=== PATIENT | female | born 1950 | race Caucasian/White ===

== ENCOUNTER → 2018-01-21 10:07 | Outpatient (CLI) | payer MEDICARE, OTHER, SELFPAY ==
[2018-01-21 13:43] LABS: Anion Gap 11.6 mEq/L (5-15); Blood Urea Nitrogen 30 mg/dL (7-18); Carbon Dioxide 35 mmol/L (21.0-32.0); Chloride 100 mmol/L (98-107); Creatinine,Serum 1.35 mg/dL (0.55-1.02); Estimated Glomerular Filt Rate 39 ml/min (>60); GFR (African American) 47 ML/MIN (>60); Glucose 130 mg/dL (74-106); Magnesium 1.9 mg/dL (1.4-2.2); Potassium 3.6 mmoL/L (3.5-5.1); Sodium 143 mmol/L (136-145)
== END ==
PROVIDERS: PCP Internal Medicine Adolescent Medicine; Visit Provider Internal Medicine Adolescent Medicine
DX: I87.2 Venous insufficiency (chronic) (peripheral) (principal)
CPT/HCPCS: 36415; 80048; 83735

== ENCOUNTER → 2018-02-18 16:33 | Outpatient (REF) | payer MEDICARE, SELFPAY | LOC: LAB 16:33 | PROVIDERS: Visit Provider Urology | DX: R39.89 Other symptoms and signs involving the genitourinary system (principal) | CPT/HCPCS: 87086; 87088; 87186 ==

== ENCOUNTER → 2018-04-17 10:28 | Outpatient (CLI) | payer MEDICARE, SELFPAY ==
[2018-04-17 13:27] LABS: Basophils % 0.4 % (0.1-2.0); Eosinophils # 0.1 K/mm3 (0.0-0.4); Eosinophils % 1.8 % (0.1-12.0); Hematocrit 40.2 % (37.0-47.0); Hemoglobin 12.6 g/dL (12.2-16.2); Lymphocytes # 1.3 K/mm3 (0.7-4.5); Lymphocytes % 20.3 K/mm3 (10-50); Mean Corpuscular HGB Conc 31.2 g/dL (31.8-35.4); Mean Corpuscular Hemoglobin 27.8 pg (27.0-31.2); Mean Platelet Volume 7.5 fl (7.4-10.4); Monocytes # 0.3 K/mm3 (0.1-1.0); Monocytes % 4.9 % (1.7-9.3); Neutrophils # 4.7 K/mm3 (1.8-7.8); Neutrophils % 72.6 % (37.0-80.0); Platelet Count 235 K/mm3 (142-424); Red Blood Count 4.52 M/mm3 (4.20-5.40); Red Cell Distribution Width 15.7 % (11.5-17.5); White Blood Count 6.5 K/mm3 (4.8-10.8)
[2018-04-17 13:40] LABS: Anion Gap 12.4 mEq/L (5-15); Blood Urea Nitrogen 31 mg/dL (7-18); Calcium 9.2 mg/dL (8.5-10.1); Carbon Dioxide 34 mmol/L (21.0-32.0); Chloride 101 mmol/L (98-107); Creatinine,Serum 1.32 mg/dL (0.55-1.02); Estimated Glomerular Filt Rate 40 ml/min (>60); GFR (African American) 49 ML/MIN (>60); Glucose 128 mg/dL (74-106); Magnesium 1.9 mg/dL (1.4-2.2); Potassium 3.4 mmoL/L (3.5-5.1); Sodium 144 mmol/L (136-145)
== END ==
PROVIDERS: Visit Provider Internal Medicine Adolescent Medicine
DX: I89.0 Lymphedema, not elsewhere classified (principal); I10 Essential (primary) hypertension
CPT/HCPCS: 36415; 80048; 83735; 85025

== ENCOUNTER → 2018-08-11 12:28 | Outpatient (CLI) | payer MEDICARE, OTHER, SELFPAY ==
--- NOTE | 2018-08-11 12:30 | CT_ITS ---
CT abdomen pelvis wo con CLINICAL INDICATION: ITS.REASON: UROLITHIASIS ORDERING PHYSICIAN: Cody Patel MD PATIENT AGE: 68 years COMPARISON: 07/09/2017 TECHNIQUE: Axial images obtained with sagittal and coronal reformats. All CT scans at the facility use one or more dose reduction, viz: automated exposure control, ma/kV adjustment per patient size (including targeted exams where dose is matched to indication, i.e. head), or iterative reconstruction technique. PROCEDURE: Oral Contrast: None IV Contrast: None . FINDINGS: The liver, spleen, adrenal glands, and pancreas have an unremarkable unenhanced CT appearance. There is a gastric lap band present. There are bilateral renal calculi. On the right there are at least 3 stones the largest in the lower pole at 9 x 3 mm. On the left there are at least 3 stones one in the midpole at 4 mm and 2 in the lower pole and 3 mm each. No ureteral calculi. No hydronephrosis. Pelvic images are limited secondary to artifact from bilateral hip replacements and patient's body habitus. No acute finding is evident. Multilevel degenerative disc disease is present in the lumbar spine. There are bilateral hip prosthesis. IMPRESSION: Bilateral nonobstructing renal calculi overall not significantly changed
== END ==
PROVIDERS: Family Provider Internal Medicine Adolescent Medicine; PCP Internal Medicine Adolescent Medicine; Visit Provider Urology
DX: N20.9 Urinary calculus, unspecified (principal)
CPT/HCPCS: 74176

== ENCOUNTER → 2018-11-21 10:13 | Outpatient (CLI) | payer MEDICARE, SELFPAY ==
[2018-11-21 14:00] LABS: Basophils % 0.2 % (0.1-2.0); Eosinophils # 0.1 K/mm3 (0.0-0.4); Hematocrit 38.2 % (37.0-47.0); Hemoglobin 11.6 g/dL (12.2-16.2); Lymphocytes # 0.9 K/mm3 (0.7-4.5); Lymphocytes % 18.9 % (10-50); Mean Corpuscular HGB Conc 30.4 g/dL (31.8-35.4); Mean Platelet Volume 7.5 fl (7.4-10.4); Monocytes # 0.3 K/mm3 (0.1-1.0); Monocytes % 6.6 % (1.7-9.3); Neutrophils # 3.5 K/mm3 (1.8-7.8); Neutrophils % 72.2 % (37.0-80.0); Platelet Count 270 K/mm3 (142-424); White Blood Count 4.8 K/mm3 (4.8-10.8)
[2018-11-21 14:38] LABS: Hemoglobin A1C 5.3 % (0.0-7.0)
[2018-11-21 15:16] LABS: Alanine Aminotransferase 13 U/L (12-78); Albumin Level 3.3 gm/dL (3.4-5.0); Albumin/Globulin Ratio 0.8 (1.1-1.8); Alkaline Phosphatase 111 U/L (46-116); Anion Gap 16.4 mEq/L (5-15); Aspartate Amino Transferase 8 U/L (15-37); Bilirubin,Total 0.5 mg/dL (0.2-1.0); Blood Urea Nitrogen 19 mg/dL (7-18); Calcium 8.7 mg/dL (8.5-10.1); Carbon Dioxide 28 mmol/L (21.0-32.0); Chloride 103 mmol/L (98-107); Cholesterol 215 mg/dL (140-200); Creatinine,Serum 1.18 mg/dL (0.55-1.02); Estimated Glomerular Filt Rate 46 ml/min (>60); GFR (African American) 55 ML/MIN (>60); Globulin 3.9 gm/dl (1.3-3.2); Glucose 107 mg/dL (74-106); HDL Cholesterol 43 mg/dL (29-89); LDL Cholesterol 158 mg/dL (0-130); Potassium 4.4 mmoL/L (3.5-5.1); Sodium 143 mmol/L (136-145); Total Protein,Serum 7.2 gm/dL (6.4-8.2); Triglycerides 68 mg/dL (30-200); VLDL Cholesterol 14 mg/dL (0-40)
== END ==
PROVIDERS: PCP Internal Medicine Adolescent Medicine; Visit Provider Internal Medicine Adolescent Medicine
DX: E11.9 Type 2 diabetes mellitus without complications (principal); I10 Essential (primary) hypertension; E78.5 Hyperlipidemia, unspecified
CPT/HCPCS: 36415; 80053; 80061; 83036; 85025

== ENCOUNTER → 2019-07-24 10:31 | Outpatient (CLI) | payer MEDICARE, OTHER, SELFPAY ==
[2019-07-24 13:34] LABS: Basophils % 0.6 % (0.1-2.0); Eosinophils # 0.1 K/mm3 (0.0-0.4); Eosinophils % 1.8 % (0.1-12.0); Hematocrit 41.6 % (37.0-47.0); Lymphocytes # 1.3 K/mm3 (0.7-4.5); Lymphocytes % 24.9 % (10-50); Mean Corpuscular HGB Conc 31.2 g/dL (31.8-35.4); Mean Corpuscular Hemoglobin 27.8 pg (27.0-31.2); Mean Corpuscular Volume 89.4 fl (81-99); Mean Platelet Volume 8.3 fl (7.4-10.4); Monocytes # 0.3 K/mm3 (0.1-1.0); Monocytes % 5.9 % (1.7-9.3); Neutrophils # 3.3 K/mm3 (1.8-7.8); Neutrophils % 66.8 % (37.0-80.0); Platelet Count 241 K/mm3 (142-424); Red Blood Count 4.65 M/mm3 (4.20-5.40); Red Cell Distribution Width 14.9 % (11.5-17.5)
[2019-07-24 14:24] LABS: Alanine Aminotransferase 14 U/L (12-78); Albumin Level 3.5 gm/dL (3.4-5.0); Alkaline Phosphatase 102 U/L (46-116); Anion Gap 15.2 mEq/L (5-15); Aspartate Amino Transferase 8 U/L (15-37); Bilirubin,Total 0.4 mg/dL (0.2-1.0); Blood Urea Nitrogen 18 mg/dL (7-18); Calcium 8.9 mg/dL (8.5-10.1); Carbon Dioxide 27 mmol/L (21.0-32.0); Chloride 104 mmol/L (98-107); Chol/HDL Ratio 4.6 (1-3.5); Cholesterol 226 mg/dL (140-200); Creatinine,Serum 1.19 mg/dL (0.55-1.02); Estimated Glomerular Filt Rate 45 ml/min (>60); GFR (African American) 55 ML/MIN (>60); Globulin 3.5 gm/dl (1.3-3.2); Glucose 119 mg/dL (74-106); HDL Cholesterol 49 mg/dL (29-89); LDL Cholesterol 160 mg/dL (0-130); Potassium 4.2 mmoL/L (3.5-5.1); Sodium 142 mmol/L (136-145); Triglycerides 87 mg/dL (30-200); VLDL Cholesterol 17 mg/dL (0-40)
[2019-07-24 15:37] LABS: Hemoglobin A1C 5.6 % (0.0-7.0)
== END ==
PROVIDERS: PCP Internal Medicine Adolescent Medicine; Visit Provider Internal Medicine Adolescent Medicine
DX: E11.9 Type 2 diabetes mellitus without complications (principal); Z79.84 Long term (current) use of oral hypoglycemic drugs; I10 Essential (primary) hypertension
CPT/HCPCS: 36415; 80053; 80061; 83036; 85025

== ENCOUNTER → 2019-08-18 10:15 | Outpatient (CLI) | payer MEDICARE, OTHER, SELFPAY ==
--- NOTE | 2019-08-18 10:17 | CT_ITS ---
PROCEDURE: CT ABDOMEN PELVIS WO CON a CLINICAL HISTORY: urolithiasis, bilateral flank pain COMPARISON: ABDPELWO CT abdomen pelvis wo con from 08/11/2018 TECHNIQUE: Axial images obtained with sagittal and coronal reformats. All CT scans at the facility use one or more dose reduction, viz: automated exposure control, ma/kV adjustment per patient size (including targeted exams where dose is matched to indication, i.e. head), or iterative reconstruction technique. FINDINGS: There are atelectatic or fibrotic changes in the lung bases. The liver, gallbladder, spleen, adrenal glands, and pancreas have an unremarkable appearance. There is a gastric lap band present the which appears to be in satisfactory position. There are multiple right renal calculi measuring up to 9 mm in the lower pole on the right and 6 mm in the lower pole on the left. No ureteral calculi. No hydronephrosis. Image quality is somewhat degraded in the lower abdomen and pelvis due to patient's body habitus and artifact from bilateral hip replacements. No obvious mass or abnormal fluid collection is evident. There is a mild amount of retained colonic feces. The distal most aspect of the ureters are not well delineated due to the overlying metallic artifact. There are degenerative changes of the lumbar spine. There is 6 mm anterolisthesis of L4 on L5 with multilevel degenerative disc disease. IMPRESSION: 1. Bilateral nephrolithiasis. No hydronephrosis. Distal ureters are not visualized due to overlying metallic artifact from the bilateral hip prosthesis 2. Constipation. 3. Otherwise negative CT abdomen pelvis without contrast Dictated by: Lenard Bowen MD 08/19/2019 13:47 Electronically signed by Lenard Bowen MD in [facility] 08/19/2019 13:47
== END ==
PROVIDERS: PCP Internal Medicine Adolescent Medicine; Visit Provider Urology
DX: N20.9 Urinary calculus, unspecified (principal)
CPT/HCPCS: 74176

== ENCOUNTER → 2019-08-25 08:45 | Outpatient (CLI) | payer MEDICARE, SELFPAY ==
--- NOTE | 2019-08-25 08:47 | MM_ITS ---
PROCEDURE: MM DIG SCREENING MAMM BI W/CAD CLINICAL INDICATION: SCREENING There is a history of breast cancer in patient's sister diagnosed after menopause. 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 R2 CAD reviewed. FINDINGS: The breasts are composed primarily of fat with moderate scattered fibroglandular densities in each breast. There is a mole marker right breast. There is no suspicious lesion in either breast and no suspicious microcalcifications. IMPRESSION: Fatty type breast parenchyma with no suspicious lesions seen BI-RAD Category: 1 Negative FOLLOW-UP: 1YR 1 Year Follow-up (A letter has been sent to the patient regarding results of the study.) Dictated by: Dr. Baljit Juarez MD 08/26/2019 19:[address] Baljit Juarez MD in [facility] 08/26/2019 19:29
== END ==
PROVIDERS: PCP Internal Medicine Adolescent Medicine; Visit Provider Internal Medicine Adolescent Medicine
DX: Z12.31 Encounter for screening mammogram for malignant neoplasm of breast (principal); Z80.3 Family history of malignant neoplasm of breast
CPT/HCPCS: 77067

== ENCOUNTER → 2020-05-13 10:00 | Outpatient (CLI) | payer MEDICARE, SELFPAY ==
[2020-05-13 13:25] LABS: Basophils % 0.3 % (0.1-2.0); Eosinophils # 0.1 K/mm3 (0.0-0.4); Eosinophils % 2.3 % (0.1-12.0); Hematocrit 40.7 % (37.0-47.0); Hemoglobin 13.1 g/dL (12.2-16.2); Lymphocytes # 1.3 K/mm3 (0.7-4.5); Mean Corpuscular HGB Conc 32.1 g/dL (31.8-35.4); Mean Corpuscular Hemoglobin 28.5 pg (27.0-31.2); Mean Corpuscular Volume 88.9 fl (81-99); Mean Platelet Volume 7.7 fl (7.4-10.4); Monocytes # 0.4 K/mm3 (0.1-1.0); Monocytes % 7.3 % (1.7-9.3); Neutrophils # 3.1 K/mm3 (1.8-7.8); Neutrophils % 64.1 % (37.0-80.0); Platelet Count 226 K/mm3 (142-424); Red Blood Count 4.57 M/mm3 (4.20-5.40); Red Cell Distribution Width 15.1 % (11.5-17.5); White Blood Count 4.9 K/mm3 (4.8-10.8)
[2020-05-13 13:36] LABS: Alanine Aminotransferase 9 U/L (12-78); Albumin/Globulin Ratio 1.3 (1.1-1.8); Alkaline Phosphatase 115 U/L (38-126); Anion Gap 11.3 mEq/L (5-15); Aspartate Amino Transferase 18 U/L (14-36); Bilirubin,Total 0.7 mg/dl (0.2-1.3); Blood Urea Nitrogen 16 mg/dl (7-17); Calcium 9.1 mg/dl (8.4-10.2); Carbon Dioxide 28 mmol/L (22.0-30.0); Chloride 102 mmol/L (98-107); Chol/HDL Ratio 4.4 (1-3.5); Cholesterol 232 mg/dl (140-200); Estimated Glomerular Filt Rate 49 ml/min (>60); GFR (African American) 60 ML/MIN (>60); Glucose 106 mg/dl (74-100); HDL Cholesterol 53 mg/dl (40-60); Potassium 4.3 mmoL/L (3.5-5.1); Sodium 137 mmol/L (136-145); Triglycerides 147 mg/dl (30-150); VLDL Cholesterol 29 mg/dL (0-40)
[2020-05-13 13:49] LABS: Direct LDL Cholesterol 157.42 mg/dL (100-129)
[2020-05-13 20:33] LABS: Hemoglobin A1C 5.9 % (4.0-6.0)
== END ==
PROVIDERS: Visit Provider Internal Medicine Adolescent Medicine
DX: E78.5 Hyperlipidemia, unspecified (principal); I87.2 Venous insufficiency (chronic) (peripheral); E11.9 Type 2 diabetes mellitus without complications; Z79.84 Long term (current) use of oral hypoglycemic drugs
CPT/HCPCS: 36415; 80053; 80061; 83036; 85025

== ENCOUNTER → 2021-02-24 10:30 | Outpatient (CLI) | payer MEDICARE, SELFPAY ==
[2021-02-24 13:59] LABS: Basophils % 0.8 % (0.1-2.0); Eosinophils # 0.1 K/mm3 (0.0-0.4); Eosinophils % 2.3 % (0.1-12.0); Hematocrit 40.8 % (37.0-47.0); Hemoglobin 12.7 g/dL (12.2-16.2); Lymphocytes # 1.1 K/mm3 (0.7-4.5); Lymphocytes % 20.4 % (10-50); Mean Corpuscular HGB Conc 31.2 g/dL (31.8-35.4); Mean Corpuscular Hemoglobin 27.4 pg (27.0-31.2); Mean Platelet Volume 7.4 fl (7.4-10.4); Monocytes # 0.4 K/mm3 (0.1-1.0); Neutrophils # 3.7 K/mm3 (1.8-7.8); Neutrophils % 69.5 % (37.0-80.0); Platelet Count 191 K/mm3 (142-424); Red Blood Count 4.63 M/mm3 (4.20-5.40); Red Cell Distribution Width 15.9 % (11.5-17.5); White Blood Count 5.4 K/mm3 (4.8-10.8)
[2021-02-24 14:30] LABS: Chloride 103 mmol/L (98-107); Sodium 140 mmol/L (136-145)
[2021-02-24 14:31] LABS: Potassium 4.2 mmoL/L (3.5-5.1)
[2021-02-24 14:33] LABS: Alanine Aminotransferase 7 U/L (12-78); Albumin Level 3.7 g/dl (3.5-5.0); Albumin/Globulin Ratio 1.2 (1.1-1.8); Alkaline Phosphatase 98 U/L (38-126); Anion Gap 10.2 mEq/L (5-15); Aspartate Amino Transferase 17 U/L (14-36); Bilirubin,Total 0.8 mg/dl (0.2-1.3); Blood Urea Nitrogen 21 mg/dl (7-17); Carbon Dioxide 31 mmol/L (22.0-30.0); Cholesterol 171 mg/dl (140-200); Estimated Glomerular Filt Rate 49 ml/min (>60); GFR (African American) 59 ML/MIN (>60); Total Protein,Serum 6.7 g/dl (6.3-8.2); Triglycerides 107 mg/dl (30-150); VLDL Cholesterol 21 mg/dL (0-40)
[2021-02-24 14:34] LABS: Calcium 9.2 mg/dl (8.4-10.2); Chol/HDL Ratio 4.5 (1-3.5); Glucose 108 mg/dl (74-100); HDL Cholesterol 38 mg/dl (40-60)
[2021-02-24 14:46] LABS: Direct LDL Cholesterol 106.58 mg/dL (100-129); Hemoglobin A1C 5.9 % (4.0-6.0)
== END ==
PROVIDERS: Visit Provider Internal Medicine Adolescent Medicine
DX: E11.9 Type 2 diabetes mellitus without complications (principal); E78.5 Hyperlipidemia, unspecified; N18.30 Chronic kidney disease, stage 3 unspecified
CPT/HCPCS: 36415; 80053; 80061; 83036; 85025

== ENCOUNTER → 2021-09-27 10:30 | Outpatient (CLI) | payer MEDICARE, SELFPAY ==
[2021-09-27 14:49] LABS: Basophils # 0.1 K/mm3 (0-0.2); Basophils % 1.3 % (0.1-2.0); Eosinophils # 0.1 K/mm3 (0.0-0.4); Eosinophils % 2.1 % (0.1-12.0); Hematocrit 41.5 % (37.0-47.0); Hemoglobin 12.7 g/dL (12.2-16.2); Lymphocytes % 21.8 % (10-50); Mean Corpuscular HGB Conc 30.5 g/dL (31.8-35.4); Mean Corpuscular Hemoglobin 28.5 pg (27.0-31.2); Mean Corpuscular Volume 93.4 fl (81-99); Mean Platelet Volume 8.8 fl (7.4-10.4); Monocytes # 0.3 K/mm3 (0.1-1.0); Monocytes % 7.2 % (1.7-9.3); Neutrophils # 3.2 K/mm3 (1.8-7.8); Neutrophils % 67.5 % (37.0-80.0); Platelet Count 240 K/mm3 (142-424); Red Blood Count 4.44 M/mm3 (4.20-5.40); Red Cell Distribution Width 15.7 % (11.5-17.5); White Blood Count 4.8 K/mm3 (4.8-10.8)
[2021-09-27 15:40] LABS: Alanine Aminotransferase 6 U/L (12-78); Albumin Level 3.6 g/dl (3.5-5.0); Albumin/Globulin Ratio 1.2 (1.1-1.8); Alkaline Phosphatase 87 U/L (38-126); Anion Gap 13.6 mEq/L (5-15); Aspartate Amino Transferase 16 U/L (14-36); Bilirubin,Total 0.8 mg/dl (0.2-1.3); Blood Urea Nitrogen 23 mg/dl (7-17); Calcium 8.8 mg/dl (8.4-10.2); Carbon Dioxide 30 mmol/L (22.0-30.0); Chloride 103 mmol/L (98-107); Chol/HDL Ratio 3.8 (1-3.5); Cholesterol 171 mg/dl (140-200); Estimated Glomerular Filt Rate 40 ml/min (>60); GFR (African American) 49 ML/MIN (>60); Globulin 3.1 g/dL (1.3-3.2); Glucose 86 mg/dl (74-100); HDL Cholesterol 45 mg/dl (40-60); Potassium 4.6 mmoL/L (3.5-5.1); Sodium 142 mmol/L (136-145); Total Protein,Serum 6.7 g/dl (6.3-8.2); Triglycerides 78 mg/dl (30-150); VLDL Cholesterol 16 mg/dL (0-40)
[2021-09-27 15:51] LABS: Direct LDL Cholesterol 115.52 mg/dL (100-129)
== END ==
PROVIDERS: Visit Provider Internal Medicine Adolescent Medicine
DX: E11.9 Type 2 diabetes mellitus without complications (principal); E78.5 Hyperlipidemia, unspecified; N18.30 Chronic kidney disease, stage 3 unspecified; Z79.84 Long term (current) use of oral hypoglycemic drugs
CPT/HCPCS: 36415; 80053; 80061; 83735; 84443; 85025

== ENCOUNTER → 2022-03-06 09:58 | Outpatient (CLI) | payer MEDICARE, SELFPAY ==
[2022-03-06 13:54] LABS: Basophils % 0.6 % (0.1-2.0); Eosinophils # 0.1 K/mm3 (0.0-0.4); Eosinophils % 2.6 % (0.1-12.0); Hematocrit 41.8 % (37.0-47.0); Hemoglobin 12.9 g/dL (12.2-16.2); Lymphocytes # 0.8 K/mm3 (0.7-4.5); Lymphocytes % 21.8 % (10-50); Mean Corpuscular HGB Conc 30.9 g/dL (31.8-35.4); Mean Corpuscular Hemoglobin 27.6 pg (27.0-31.2); Mean Corpuscular Volume 89.4 fl (81-99); Mean Platelet Volume 7.5 fl (7.4-10.4); Monocytes # 0.3 K/mm3 (0.1-1.0); Monocytes % 8.6 % (1.7-9.3); Neutrophils # 2.4 K/mm3 (1.8-7.8); Neutrophils % 66.5 % (37.0-80.0); Platelet Count 191 K/mm3 (142-424); Red Blood Count 4.68 M/mm3 (4.20-5.40); Red Cell Distribution Width 15.3 % (11.5-17.5); White Blood Count 3.6 K/mm3 (4.8-10.8)
[2022-03-06 14:02] LABS: Chloride 106 mmol/L (98-107); Potassium 4.4 mmoL/L (3.5-5.1); Sodium 139 mmol/L (136-145)
[2022-03-06 14:04] LABS: Alanine Aminotransferase 9 U/L (12-78); Aspartate Amino Transferase 18 U/L (14-36); Blood Urea Nitrogen 28 mg/dl (7-17); Estimated Glomerular Filt Rate 37 ml/min (>60); GFR (African American) 45 ML/MIN (>60)
[2022-03-06 14:05] LABS: Albumin Level 3.6 g/dl (3.5-5.0); Albumin/Globulin Ratio 1.2 (1.1-1.8); Alkaline Phosphatase 94 U/L (38-126); Anion Gap 7.4 mEq/L (5-15); Bilirubin,Total 0.9 mg/dl (0.2-1.3); Calcium 9.2 mg/dl (8.4-10.2); Carbon Dioxide 30 mmol/L (22.0-30.0); Cholesterol 171 mg/dl (140-200); Globulin 2.9 g/dL (1.3-3.2); Glucose 111 mg/dl (74-100); HDL Cholesterol 43 mg/dl (40-60); Magnesium 1.9 mg/dl (1.6-2.3); Total Protein,Serum 6.5 g/dl (6.3-8.2); Triglycerides 86 mg/dl (30-150); VLDL Cholesterol 17 mg/dL (0-40)
[2022-03-06 14:16] LABS: Direct LDL Cholesterol 108.59 mg/dL (100-129)
[2022-03-06 14:22] LABS: Triiodothryronine (T3) Uptake 34 % (23.5-40.5)
[2022-03-06 14:23] LABS: Free Thyroxine Index 3.4 ug/dL (5.93-13.13); T4 (Thyroxine) 10.1 ug/dl (5.53-11.0)
[2022-03-06 14:36] LABS: Thyroid Stimulating Hormone 4.24 uIU/mL (0.465-4.68)
[2022-03-06 15:18] LABS: Hemoglobin A1C 5.7 % (4.0-6.0)
== END ==
PROVIDERS: Visit Provider Internal Medicine Adolescent Medicine
DX: E11.9 Type 2 diabetes mellitus without complications (principal); E78.5 Hyperlipidemia, unspecified; N18.30 Chronic kidney disease, stage 3 unspecified; Z79.84 Long term (current) use of oral hypoglycemic drugs
CPT/HCPCS: 36415; 80053; 80061; 83036; 83735; 84436; 84443; 84479; 85025

== ENCOUNTER 2022-11-23 20:25 | Inpatient (IN) | payer MEDICARE, OTHER, SELFPAY ==
[2022-11-23 20:25] VITALS: BP 126/59; PULSE 88; RESP 23; TEMP 37.1; O2SAT 92; BMI 54.0
--- NOTE | 2022-11-23 20:34 | ECG_ITS ---
APPROVED REPORT Exam: Resting ECG HR:84 bpm ECG Measurements Heart Rate 84 AXES MO 157 P 52 QRSd 170 QRS 169 QT 399 T -36 QTc 440 Conclusion SINUS RHYTHM RIGHT AXIS DEVIATION [QRS AXIS > 100] RIGHT BUNDLE BRANCH BLOCK Old inferior and anterior changes ABNORMAL ECG UNCONFIRMED REPORT Electronically signed by : Vik Lieberman MD 11/24/2022 09:36:46
--- NOTE | 2022-11-23 20:40 | HMH.EDGENADL ---
Discharge Plan Disposition Patient Disposition: Admitted As Inpatient Condition: Serious Chief Complaint: Fall Prescriptions Prescriptions: No Action metformin 500 mg tablet 500 mg PO DAILY losartan 50 mg tablet 50 mg PO .BEDTIME red yeast rice 600 mg capsule 600 mg PO QDAY aspirin [Adult Low Dose Aspirin] 81 mg tablet,delayed release (DR/EC) 81 mg PO QDAY escitalopram oxalate 10 mg tablet 10 mg PO DAILY fluticasone propion-salmeterol [Advair Diskus] 250-50 mcg/dose blister with device 2 inh INHALATION Q12H celecoxib [Celebrex] 200 mg capsule 200 mg PO ONCE furosemide 40 MG tablet 40 mg PO DAILY PRN (Reason: fluid) Coricidin HBP Cold and Flu 2-325 mg Tablet 1 tab PO Q6H PRN (Reason: cough, cold) Referrals Follow up/Referrals: Vik Lieberman MD [Primary Care Provider] - See instructions Clinical Impressions Clinical Impression: Non-ST elevated myocardial infarction, Urinary tract infection, Congestive heart failure, Right bundle branch block, Fall, Acute respiratory failure with hypoxia Discharge ED Provider: Tutu Godwin General Adult HPI General Chief complaint: Fall Stated complaint: Fall, low o2 sat, r knee pain, iwona for 8 hr Time Seen by Provider: 11/23/22 20:40 History of Present Illness HPI narrative: Patient is brought in by ambulance. She says that she was getting ready to go the bathroom, had pulled her pants down, and both legs got weak causing her to fall. Her leg got wedged between the vanity and the commode and she could not get up. She laid there from the time of the fall about noon until this evening when her grandson found her. He came to check on her because she was not answering her phone. She says that she has some pain above her right knee where it was wedged. Otherwise denies any other injuries. Her right heel feels a little numb where it was laying on the ground the entire time. She did not hit her head or injure her neck. She did not have any chest or abdominal injury. EMS found her to have a low pulse oximetry (70s) and put her on nasal cannula oxygen. She states she is always short of breath, she has asthma. She has never been a smoker and does not have COPD. She is not on oxygen at home. She states that she has had a cold with a bad cough for 2 weeks, no fever. Some diarrhea, no vomiting. Related Data Home Medications Medication Instructions Recorded Confirmed aspirin 81 mg tablet,delayed 81 mg PO QDAY heart 11/07/17 11/23/22 release (Adult Low Dose Aspirin) losartan 50 mg tablet 50 mg PO .BEDTIME blood pressure 11/07/17 11/23/22 metformin 500 mg tablet 500 mg PO DAILY Diabetes 11/07/17 11/23/22 red yeast rice 600 mg capsule 600 mg PO QDAY Cholesterol 11/07/17 11/23/22 celecoxib 200 mg capsule (Celebrex) 200 mg PO ONCE Arthritis 02/18/18 11/23/22 fluticasone 250 mcg-salmeterol 50 2 inh inhalation Q12H Breathing 02/18/18 11/23/22 mcg/dose blistr powdr for problems inhalation (Advair Diskus) furosemide 40 mg tablet 40 mg PO DAILY PRN fluid 06/14/18 11/23/22 escitalopram oxalate 10 mg tablet 10 mg PO DAILY Depression 02/17/19 11/23/22 chlorpheniramine-acetaminophen 2 1 tab PO Q6H PRN cough, cold 11/23/22 11/23/22 mg-325 mg tablet (Coricidin HBP Cold and Flu) Allergies Allergy/AdvReac Type Severity Reaction Status Date / Time colesevelam [From WELCHOL] Allergy Severe I-RASH Verified 08/18/19 12:04 [facility] Disclaimer: The information contained in this section may have been updated after the patient was seen, as this information can be updated by other users. Social History Smoking Status: Never smoker alcohol intake: never substance use type: denies use current occupational status: disabled Travel in the last 8 weeks: None ROS Obtained: Yes Systems reviewed as appropriate & no additional complaints except as documented Constitutional Constitutional: Denies fever(s), Denie
--- NOTE | 2022-11-23 20:42 | PC.NURSE ---
Dr. Godwin at [facility]
--- NOTE | 2022-11-23 20:46 | XR_ITS ---
PROCEDURE INFORMATION: Exam: XR Chest Exam date and time: 11/23/2022 9:27 PM Age: 72 years old Clinical indication: Pain; Chest pressure; Additional info: Low o2 sat, cough TECHNIQUE: Imaging protocol: Radiologic exam of the chest. Views: 1 view. COMPARISON: CR CXR CHEST(2 VIEWS-NOT PORTABLE) 06/08/2016 7:28 AM FINDINGS: Lungs: No focal consolidation or mass. Pleural spaces: No convincing pleural effusion. No pneumothorax. Heart/Mediastinum: Heart size is mildly enlarged. There is prominence of the central pulmonary vascular structures. Bones/joints: Osteoarthritis of bilateral glenohumeral joints.. IMPRESSION: Cardiomegaly with central pulmonary vascular congestion.
--- NOTE | 2022-11-23 20:46 | XR_ITS ---
PROCEDURE INFORMATION: Exam: XR Right Femur Exam date and time: 11/23/2022 9:32 PM Age: 72 years old Clinical indication: Pain; Knee; Right; Additional info: Fall, pain above knee TECHNIQUE: Imaging protocol: Radiologic exam of the Right femur. Views: 2 views. COMPARISON: 1. CT ABDOMEN PELVIS WO CON 08/18/2019 10:28 AM 2. CR XR PELVIS 1-2V 11/23/2022 9:32 PM FINDINGS: Bones/joints: No acute fracture or dislocation. There is a total right hip prosthesis. The hardware appears intact without evidence of loosening. There is severe narrowing of the medial and patellofemoral compartments of the knee with adjacent subchondral sclerosis and spur formation. Soft tissues: There is a 3 cm dystrophic calcification adjacent to the medial femoral condyle. IMPRESSION: 1. No acute findings. No fracture identified. 2. Severe osteoarthritis right knee. 3. Right hip prosthesis.
--- NOTE | 2022-11-23 20:50 | XR_ITS ---
PROCEDURE INFORMATION: Exam: XR Pelvis Exam date and time: 11/23/2022 9:32 PM Age: 72 years old Clinical indication: Pelvic pain; Additional info: Fall TECHNIQUE: Imaging protocol: Radiologic exam of the pelvis. Views: 1 or 2 view. COMPARISON: 1. CT ABDOMEN PELVIS WO CON 08/18/2019 10:28 AM 2. CR XR FEMUR RT 2V 11/23/2022 9:32 PM FINDINGS: Bones/joints: There are bilateral metallic hip prostheses. The hardware appears intact without evidence of loosening. No dislocation. Pelvic ring appears intact. No fracture identified. Soft tissues: Unremarkable. IMPRESSION: 1. Bilateral hip prostheses. 2. No acute finding. No fracture or dislocation.
[2022-11-23 21:00] VITALS: PULSE 87; RESP 26; O2SAT 91
--- NOTE | 2022-11-23 21:12 | PC.NURSE ---
pt has been a difficult stick to obtain labs & an IV despite multiple attempts even with u/s guided. Lab called to attempt to collect labs
--- NOTE | 2022-11-23 21:16 | PC.NURSE ---
RAD at for CXR
[2022-11-23 21:18] LABS: Coronavirus 19, PCR Not Detected (NotDetected); Influenza A, PCR Not Detected (NotDetected); Influenza B, PCR Not Detected (NotDetected)
--- NOTE | 2022-11-23 21:28 | PC.NURSE ---
LAB at to attempt to obtain labs
--- NOTE | 2022-11-23 21:29 | PC.NURSE ---
Respiratory notified placed order for ABG
[2022-11-23 21:30] VITALS: PULSE 79; RESP 23; O2SAT 90
--- NOTE | 2022-11-23 21:39 | PC.NURSE ---
RT at to obtain ABG
[2022-11-23 21:51] LABS: ABG Base Excess -2.4 mmol/L (-2.4-2.3); ABG HCO3 23.7 mmhg (22.0-26.0); ABG Oxygen Saturation 91 % (90-100); ABG PCO2 46.8 mmhg (35.0-45.0); ABG PH 7.32 mmol/L (7.35-7.45); ABG PO2 65.8 mmhg (80-100); ABG TCO2 25.1 mmhg (23-27)
[2022-11-23 21:52] LABS: Allen's Test Acceptable; Oxygen 4LPM %; Source Right Brachial
[2022-11-23 22:26] LABS: Basophils # 0.1 K/mm3 (0-0.2); Basophils % 0.6 % (0.1-2.0); Eosinophils % 0.1 % (0.1-12.0); Hematocrit 40.5 % (37.0-47.0); Hemoglobin 12.9 g/dL (12.2-16.2); Lymphocytes # 0.4 K/mm3 (0.7-4.5); Lymphocytes % 5.8 % (10-50); Mean Corpuscular HGB Conc 31.9 g/dL (31.8-35.4); Mean Corpuscular Hemoglobin 28.4 pg (27.0-31.2); Mean Corpuscular Volume 89.2 fl (81-99); Mean Platelet Volume 7.9 fl (7.4-10.4); Monocytes # 0.3 K/mm3 (0.1-1.0); Monocytes % 4.1 % (1.7-9.3); Neutrophils # 6.7 K/mm3 (1.8-7.8); Neutrophils % 89.3 % (37.0-80.0); Platelet Count 200 K/mm3 (142-424); Red Blood Count 4.54 M/mm3 (4.20-5.40); Red Cell Distribution Width 17.1 % (11.5-17.5); White Blood Count 7.5 K/mm3 (4.8-10.8)
[2022-11-23 22:28] LABS: MANUAL DIFFERENTIAL MANUAL DIFFERENTIAL (MANUAL DIFF)
[2022-11-23 22:40] LABS: Anisocytosis 2+; Hypochromasia 1+; Lymphocytes % 11 % (10-50); Neutrophils % 80 % (42-76); Platelet Estimate Normal; Total Cells Counted 100
[2022-11-23 22:42] LABS: Chloride 105 mmol/L (98-107); Potassium 4.6 mmoL/L (3.5-5.1); Sodium 140 mmol/L (136-145)
[2022-11-23 22:44] LABS: Alanine Aminotransferase 12 U/L (12-78); Alkaline Phosphatase 107 U/L (38-126); Aspartate Amino Transferase 35 U/L (14-36); Bilirubin,Total 1.3 mg/dl (0.2-1.3); Blood Urea Nitrogen 34 mg/dl (7-17); Creatinine Clearance Estimated 28 mL/min (50-200); Estimated Glomerular Filt Rate 30 ml/min (>60); GFR (African American) 36 ML/MIN (>60)
[2022-11-23 22:45] LABS: Albumin Level 3.7 g/dl (3.5-5.0); Anion Gap 12.6 mEq/L (5-15); Calcium 8.7 mg/dl (8.4-10.2); Carbon Dioxide 27 mmol/L (22.0-30.0); Creatine Kinase 609 U/L (30-135); Globulin 3.8 g/dL (1.3-3.2); Glucose 118 mg/dl (74-100); Total Protein,Serum 7.5 g/dl (6.3-8.2)
[2022-11-23 22:54] LABS: NT Pro Brain Natriuretic Pep. 13000 pg/mL (0-125)
[2022-11-23 23:04] VITALS: BP 128/74; PULSE 84; RESP 30; O2SAT 94
--- NOTE | 2022-11-23 23:07 | PC.NURSE ---
obtained urine via categorization. Whitehead left d/t spontaneous output of 500ml
[2022-11-23 23:09] LABS: Microscopic, Urine URINE MICROSCOPIC (MICROSCOPIC)
[2022-11-23 23:10] LABS: Appearance,Urine CLEAR (Clear); Bilirubin,Urine Negative (Negative); Blood, Urine 3+ (Negative); Color,Urine YELLOW (Yellow); Glucose,Urine (UA) Negative (Negative); Ketones,Urine 1+ (Negative); Leukocyte Esterase,Urine 3+ (Negative); Nitrate,Urine POSITIVE (Negative); Protein,Urine 2+ (Negative); Specific Gravity, Urine 1.015 (1.005-1.030)
[2022-11-23 23:11] LABS: Troponin I 0.21 ng/ml (0.00-0.034)
--- NOTE | 2022-11-23 23:11 | PC.NURSE ---
Troponin 0.21 per Aldo in the Lab. Reported to attending
[2022-11-23 23:25] LABS: Bacteria,Urine 1+ /lpf; RBC,Urine 20-50 #/hpf (0-3); WBC,Urine 50-100 #/hpf (0-3)
[2022-11-23 23:30] VITALS: BP 132/66; PULSE 79; RESP 25; O2SAT 94
--- NOTE | 2022-11-23 23:50 | PC.NURSE ---
Dr. Godwin speaking with hospitalist
--- NOTE | 2022-11-23 23:56 | PC.NURSE ---
ingot supervisor notified for bed assignment (207)
[2022-11-24] VITALS (12 sets, daily range): BP systolic 106–149; BP diastolic 53–79; PULSE 79–89; RESP 20–26; TEMP 36.5–37.4; O2SAT 90–96; BMI 54.9; BMI 55.8
--- NOTE | 2022-11-24 00:06 | PC.NURSE ---
LAB at to attempt to draw blood for second trop
--- NOTE | 2022-11-24 00:21 | PC.NURSE ---
Gave report to Nayla MARSHALL on 2nd floor (med/Surg)
--- NOTE | 2022-11-24 00:28 | PC.NURSE ---
titrate ot down from 4LPM NC to 3LMP NC and she is tolerating it well, sats 95-97%.
--- NOTE | 2022-11-24 00:33 | EXP.HP ---
History of Present Illness *Admission Date: 11/24/22 *Reason for visit:: uti, chf, fall at home , acute respitory insuffency with low o2 *History of present illness: Patient kam hardin at home fell in bath room and trapped between vanity and toilet . found by family members hours later. when ems arrival and with help of son and another ambulance crew removed her from the bathroom. her O2 sats wher in the 70's . she deniew any use or need of oyxgen i the past and had seen her PCP about a week ago . she said her legs just gave out. denies shortness of breath or chest pain when event occurred [facility] Disclaimer: The information contained in this section may have been updated after the patient was seen, as this information can be updated by other users. Medical History (Updated 11/24/22 @ 04:52 by Oscar Barrios APRN) Diabetes mellitus, type 2 Hypertension Surgical History History of bilateral ligation of fallopian tubes History of left hip replacement History of right hip replacement LAP-BAND surgery status Family History Family history of hypertension Family history of diabetes mellitus type I Family history of myocardial infarction Family history of hyperlipidemia Social History (Updated 11/24/22 @ 01:58 by Nayla Zepeda RN) Smoking Status: Never smoker alcohol intake: never substance use type: denies use current occupational status: disabled Travel in the last 8 weeks: None Review of Systems Review of Systems Review of systems (narrative): she is awake , alert good historian. denies any significant pain. Constitutional Constitutional: Reports as per HPI, Denies headache(s), Reports lethargy and Denies weakness Eyes Eyes: Reports system reviewed and no additional complaints, except as documented ENT Ears, Nose, Mouth, and Throat: Reports dry mouth and Denies headache(s) *Cardiovascular Cardiovascular: Reports leg edema Comments: noted redness chronic to lower extremities *Respiratory Respiratory: Reports system reviewed and no additional complaints, except as documented Comments: denies shortness of breath, has noted having cough and respitory illness for about 3 weeks *Gastrointestinal Gastrointestinal: Reports system reviewed and no additional complaints, except as documented *Genitourinary Genitourinary: Reports system reviewed and no additional complaints, except as documented Comments: denies pain on urination *Musculoskeletal Musculoskeletal: Reports abnormal gait and Denies numbness Comments: BMI greater than 50 *Neurologic Neurologic: Reports abnormal gait, Denies headache(s), Denies numbness and Denies weakness Psychiatric Psychiatric: Reports system reviewed and no additional complaints, except as documented Endocrine Endocrine: Reports system reviewed and no additional complaints, except as documented Hematologic/Lymphatic Hematologic/Lymphatic: Reports system reviewed and no additional complaints, except as documented Allergic/Immunologic Allergic/Immunologic: Reports system reviewed and no additional complaints, except as documented Meds Home Medications and Allergies Home Medications Medication Instructions Recorded Confirmed Type aspirin 81 mg tablet,delayed 81 mg PO DAILY heart 11/07/17 11/24/22 History release (Adult Low Dose Aspirin) losartan 50 mg tablet 50 mg PO HS blood pressure 11/07/17 11/24/22 History red yeast rice 600 mg capsule 600 mg PO DAILY Cholesterol 11/07/17 11/24/22 History celecoxib 200 mg capsule (Celebrex) 200 mg PO DAILY Arthritis 02/18/18 11/24/22 History fluticasone 250 mcg-salmeterol 50 1 inh inhalation BID Breathing 02/18/18 11/24/22 History mcg/dose blistr powdr for problems inhalation (Advair Diskus) furosemide 40 mg tablet 40 mg PO DAILYP PRN FLUID 06/14/18 11/24/22 History escitalopram oxalate 10 mg tablet 10 mg
--- NOTE | 2022-11-24 00:37 | PC.NURSE ---
Dr. Godwin notified of critical troponin 0.31
[2022-11-24 00:38] LABS: Troponin I 0.31 ng/ml (0.00-0.034)
--- NOTE | 2022-11-24 00:56 | PC.NURSE ---
AT 0015 RECEIVED REPORT FROM TACHO RN/ED
--- NOTE | 2022-11-24 01:20 | PC.NURSE ---
PT ARRIVED TO FLOOR AT THIS TIME
--- NOTE | 2022-11-24 02:40 | PC.NURSE ---
PATIENT ARRIVED ON THE [facility] FLOOR AT 0120 VIA STRETCHER FROM THE ED. ADMITTED TO ROOM 207. ORIENTED TO ROOM AND EQUIPEMENT. CALL RAMOS IN REACH. ADMISSION DX: RHABDO, UTI, QIAN, ACUTE RESP FAILURE, NSTEMI, RIGHT BBB. PATIENT IS A/O X 4. VERBALIZES UNDERSTANDING OF INSTRUCTIONS.
[2022-11-24 04:20] LABS: Chloride 106 mmol/L (98-107); Potassium 4.4 mmoL/L (3.5-5.1); Sodium 141 mmol/L (136-145)
[2022-11-24 04:23] LABS: Alanine Aminotransferase 11 U/L (12-78); Albumin Level 3.3 g/dl (3.5-5.0); Albumin/Globulin Ratio 0.9 (1.1-1.8); Alkaline Phosphatase 98 U/L (38-126); Anion Gap 11.4 mEq/L (5-15); Aspartate Amino Transferase 34 U/L (14-36); Bilirubin,Total 0.9 mg/dl (0.2-1.3); Blood Urea Nitrogen 32 mg/dl (7-17); Carbon Dioxide 28 mmol/L (22.0-30.0); Creatinine Clearance Estimated 30 mL/min (50-200); Estimated Glomerular Filt Rate 32 ml/min (>60); GFR (African American) 38 ML/MIN (>60); Globulin 3.6 g/dL (1.3-3.2); Glucose 100 mg/dl (74-100); Total Protein,Serum 6.9 g/dl (6.3-8.2)
[2022-11-24 04:24] LABS: Calcium 8.2 mg/dl (8.4-10.2)
--- NOTE | 2022-11-24 04:38 | PC.NURSE ---
third troponin result called to the floor and was 0.40. Dulce YOUNG NP NOTIFIED.
--- NOTE | 2022-11-24 04:45 | ECG_ITS ---
APPROVED REPORT Exam: Resting ECG HR:80 bpm ECG Measurements Heart Rate 80 AXES SC 191 P -6 QRSd 145 QRS 166 QT 382 T -41 QTc 417 Conclusion SINUS RHYTHM WITH SINUS ARRHYTHMIA RIGHT BUNDLE BRANCH BLOCK [120+ ms QRS DURATION, UPRIGHT V1, 40+ ms S IN I/aVL/V4/V5/V6] LEFT POSTERIOR FASCICULAR BLOCK [QRS AXIS > 109, INFERIOR Q] UNCONFIRMED REPORT Electronically signed by : Vik Lieberman MD 11/24/2022 18:48:08
--- NOTE | 2022-11-24 04:51 | ECG_ITS ---
APPROVED REPORT Exam: Resting ECG HR:80 bpm ECG Measurements Heart Rate 80 AXES TN 191 P -6 QRSd 145 QRS 166 QT 382 T -41 QTc 417 Conclusion SINUS RHYTHM WITH SINUS ARRHYTHMIA RIGHT BUNDLE BRANCH BLOCK LEFT POSTERIOR FASCICULAR BLOCK UNCONFIRMED REPORT Electronically signed by : Vik Lieberman MD 11/24/2022 18:47:47
--- NOTE | 2022-11-24 05:04 | PC.NURSE ---
12 LEAD OBTAINED AND REVIEWED BY Dulce YOUNG NP. NO NEW ORDERS RECEIVED. CARDIOLOGY TO FOLLOW UP.
--- NOTE | 2022-11-24 05:28 | PC.NURSE ---
RESTING QUIETLY AT THIS TIME. 02 AT 3LNC. DENIES PAIN OR SOA, F/C TO BSD.
--- NOTE | 2022-11-24 07:34 | CA_ITS ---
FINAL REPORT TECHNIQUE: Grayscale and color Doppler ultrasound images with graded compression of the deep venous system were obtained from the groin to the calf veins bilaterally. CLINICAL HISTORY: Patient had a fall yesterday in the bathroom that left her pinned in one position for 6 hours per patient. She states her knees gave out resulting in the fall. Morbid obesity (346 lbs), HTN, HLD. FINDINGS: Exam is limited due to patient body habitus. The deep venous system is normal. There is no evidence of DVT. Flow and compressibility are normal. IMPRESSION: Limited exam without evidence of left or right lower extremity DVT. Reviewed, Interpreted and Dictated by Julia Bean MD Transcribed by Dottie Pineda Authenticated and [facility]
[2022-11-24 07:45] LABS: Troponin I 0.34 ng/ml (0.00-0.034)
[2022-11-24 09:14] LABS: Alanine Aminotransferase 12 U/L (12-78); Albumin Level 3.4 g/dl (3.5-5.0); Alkaline Phosphatase 100 U/L (38-126); Anion Gap 13.5 mEq/L (5-15); Aspartate Amino Transferase 41 U/L (14-36); Blood Urea Nitrogen 32 mg/dl (7-17); Calcium 8.4 mg/dl (8.4-10.2); Carbon Dioxide 24 mmol/L (22.0-30.0); Chloride 108 mmol/L (98-107); Creatine Kinase 578 U/L (30-135); Creatinine Clearance Estimated 30 mL/min (50-200); Estimated Glomerular Filt Rate 32 ml/min (>60); GFR (African American) 38 ML/MIN (>60); Globulin 3.5 g/dL (1.3-3.2); Glucose 88 mg/dl (74-100); Potassium 4.5 mmoL/L (3.5-5.1); Sodium 141 mmol/L (136-145); Total Protein,Serum 6.9 g/dl (6.3-8.2)
--- NOTE | 2022-11-24 14:33 | HMH.PHAINT1 ---
Pharmacy Intervention Comments: MEDICATION RECONCILIATION COMPLETE USING LIST PROVIDED BY FAMILY MEMBER AND EXTERNAL PHARMACY FILL HISTORY.
--- NOTE | 2022-11-24 15:35 | HMH.PTEV ---
Physical Therapy Evaluation Rehab PT IP Evaluation Start: 11/24/22 11:09 Freq: ONCE Status: Active Protocol: Document 11/24/22 15:22 JEVONMaral (Rec: 11/24/22 15:34 CURTIS [id number]) Subjective/History History History Pt is a 72 y/o female that presented to [facility] ER via ambulance on 11/23/22 following a fall. Pt reports her legs gave out on her while using the restroom and her leg got wedged between the vanity and toilet and she was unable to get up, later found by grandson. Pt reported right knee pain and right heel numbness following the fall, denies hitting her head or other injuries. EMS found her to have a low pulse oximetry ( 70s) and put her on nasal cannula oxygen. She states she is always short of breath, she has asthma. She has never been a smoker and does not have COPD. She is not on oxygen at home. She states that she has had a cold with a bad cough for 2 weeks, no fever. Some diarrhea, no vomiting. Medical History: Diabetes mellitus type 2, Hypertension Subjective Subjective Pt reports prior to hospitalization, she was living at home alone in a one- story home. Pt reports she was using a SC and RW for ambulation. Pt reports she was independent with ADLs. Pt states she doesn't have anyone to help her at home at this time if needed. Pt reports she had been sick for a couple weeks and felt herself getting weak. Pt reports her legs gave out on her causing her to fall while using the restroom . Pt denies previous falls. Pt reports she is sore all over . Pt was on 4L nasal cannula
[2022-11-24 17:56] LABS: Hemoglobin A1C 5.6 % (4.0-6.0)
--- NOTE | 2022-11-24 18:40 | PC.NURSE ---
pt requiring 4lnc for o2 support. desats with exertion. was able to sit on side of bed with therapy but did not ambulate r/t activity intolerance.
[2022-11-24 18:55] LABS: Chloride 105 mmol/L (98-107)
[2022-11-24 18:56] LABS: Sodium 139 mmol/L (136-145)
[2022-11-24 18:59] LABS: Blood Urea Nitrogen 29 mg/dl (7-17); Carbon Dioxide 27 mmol/L (22.0-30.0); Creatinine Clearance Estimated 30 mL/min (50-200); Estimated Glomerular Filt Rate 32 ml/min (>60); GFR (African American) 38 ML/MIN (>60); Glucose 109 mg/dl (74-100)
[2022-11-25] VITALS (10 sets, daily range): BP systolic 86–152; BP diastolic 48–81; PULSE 70–90; RESP 16–20; TEMP 36.7–37.1; O2SAT 90–95; BMI 55.0
[2022-11-25 09:59] LABS: Basophils # 0.1 K/mm3 (0-0.2); Basophils % 0.7 % (0.1-2.0); Eosinophils # 0.1 K/mm3 (0.0-0.4); Eosinophils % 1.4 % (0.1-12.0); Hematocrit 34.5 % (37.0-47.0); Hemoglobin 11.2 g/dL (12.2-16.2); Lymphocytes # 0.9 K/mm3 (0.7-4.5); Lymphocytes % 12.8 % (10-50); Mean Corpuscular HGB Conc 32.3 g/dL (31.8-35.4); Mean Corpuscular Hemoglobin 28.9 pg (27.0-31.2); Mean Corpuscular Volume 89.3 fl (81-99); Mean Platelet Volume 7.6 fl (7.4-10.4); Monocytes # 0.5 K/mm3 (0.1-1.0); Neutrophils # 5.3 K/mm3 (1.8-7.8); Platelet Count 183 K/mm3 (142-424); Red Blood Count 3.87 M/mm3 (4.20-5.40); Red Cell Distribution Width 17.2 % (11.5-17.5); White Blood Count 6.8 K/mm3 (4.8-10.8)
[2022-11-25 10:01] LABS: Chloride 103 mmol/L (98-107); Sodium 139 mmol/L (136-145)
[2022-11-25 10:03] LABS: Blood Urea Nitrogen 29 mg/dl (7-17); Creatinine Clearance Estimated 30 mL/min (50-200); Estimated Glomerular Filt Rate 32 ml/min (>60); GFR (African American) 38 ML/MIN (>60)
[2022-11-25 10:04] LABS: Alanine Aminotransferase 13 U/L (12-78); Albumin Level 3.2 g/dl (3.5-5.0); Albumin/Globulin Ratio 0.9 (1.1-1.8); Alkaline Phosphatase 78 U/L (38-126); Aspartate Amino Transferase 34 U/L (14-36); Calcium 8.1 mg/dl (8.4-10.2); Carbon Dioxide 30 mmol/L (22.0-30.0); Creatine Kinase 219 U/L (30-135); Globulin 3.7 g/dL (1.3-3.2); Glucose 97 mg/dl (74-100); Magnesium 1.7 mg/dl (1.6-2.3); Total Protein,Serum 6.9 g/dl (6.3-8.2)
--- NOTE | 2022-11-25 11:35 | PC.NURSE ---
O2 DROPPED TO 78% ON ROOM AIR
--- NOTE | 2022-11-25 13:33 | EXP.ACUTE.PN ---
Subjective *Date: 11/25/22 *Time: 13:33 Interval history: States she feels somewhat better this morning. Tolerating weaning of oxygen. Denies nausea, vomiting, diarrhea. Tolerating diuresis. -2.4 L in the past 24 hours. -4 L since admission. Labs stable this morning with stable creatinine. Patient still quite weak and requiring significant assistance. No chest pain. Improving shortness of breath Medical Exam Vital signs and Labs for Last 24 Hours: Vital Signs Temp Pulse Pulse Resp BP Pulse Ox 11/25/22 11:17 98.8 F 87 16 86/65 L 91 L 11/25/22 08:00 93 L 11/25/22 08:00 98.2 F 87 20 112/65 93 L 11/25/22 06:28 90 L 11/25/22 05:24 98.1 F 81 18 152/81 H 92 L 11/25/22 04:00 70 11/25/22 00:00 70 11/24/22 20:00 80 11/25/22 00:00 98.2 F 87 18 121/71 92 L 11/24/22 16:00 99.4 F 82 20 106/53 L 92 L 11/24/22 16:00 80 Intake and Output 11/24/22 11/25/22 11/25/22 23:59 07:59 15:59 Intake Total 960 / 1800 120 / 900 780 / 900 Output Total 1200 / 5100 900 / 2100 1200 / 2100 Balance -240 / -3300 -780 / -1200 -420 / -1200 Intake: Intake, Oral Amount 960 / 1800 120 / 900 780 / 900 Output: Output, Urine Amount 900 / 900 0 / 900 Output, Urine Amount (Catheter) 1200 / 2000 1200 / 1200 [place] 1200 / 2000 1200 / 1200 Other: Number of Unmeasured Voids 0 0 Number of Bowel Movements 1 Weight 155.5 kg Patient Weight 11/25/22 23:59 Weight 155.5 kg Laboratory Results - last 24 hr 11/23/22 23:04: Urine Color Yellow, Urine Appearance Clear, Urine pH 7.0, Ur Specific [place] 1.015, Urine Protein 2+, Urine Glucose (UA) Negative, Urine Ketones 1+, Urine Blood 3+, Urine Nitrate Positive, Urine Bilirubin Negative, Urine Urobilinogen 1.0, Ur Leukocyte Esterase 3+ A, Urine RBC 20-50, Urine WBC 50-100, Urine Bacteria 1+ 11/24/22 06:58: Hemoglobin A1c 5.6 11/24/22 18:43: Sodium 139, Potassium 4.0, Chloride 105, Carbon Dioxide 27, Anion Gap 11.0, BUN 29 H, Creatinine 1.60 H, Estimated Creat Clear 30, Estimated GFR 32 L, Est GFR ( Amer) 38 L, Glucose 109 H D, Calcium 8.0 L 11/25/22 09:35: Sodium 139, Potassium 4.0, Chloride 103, Carbon Dioxide 30, Anion Gap 10.0, BUN 29 H, Creatinine 1.60 H, Estimated Creat Clear 30, Estimated GFR 32 L, Est GFR ( Amer) 38 L, Glucose 97, Calcium 8.1 L, Magnesium 1.7, Total Bilirubin 1.0, AST 34, ALT 13, Alkaline Phosphatase 78, Total Creatine Kinase 219 H D, Total Protein 6.9, Albumin 3.2 L, Globulin 3.7 H, Albumin/Globulin Ratio 0.9 L 11/25/22 09:35: WBC 6.8, RBC 3.87 L, Hgb 11.2 L, Hct 34.5 L, MCV 89.3, MCH 28.9, MCHC 32.3, RDW 17.2, Plt Count 183, MPV 7.6, Neut % (Auto) 78.0, Lymph % (Auto) 12.8, [place] % (Auto) 7.0, Eos % (Auto) 1.4, Baso % (Auto) 0.7, Neut # (Auto) 5.3, Lymph # (Auto) 0.9, [place] # (Auto) 0.5, Eos # (Auto) 0.1, Baso # (Auto) 0.1 I & O for Labs for Last 24 Hours: Intake & Output 11/22/22 11/23/22 11/24/22 11/25/22 23:59 23:59 23:59 23:59 Intake Total 1680 / 1800 900 / 900 Output Total 5100 / 5100 2100 / 2100 Balance -3420 / -3300 -1200 / -1200 Weight 154.221 kg 156.943 kg 155.5 kg Microbiology Reports for the Last 24 Hours: Microbiology 11/23/22 23:04 Urine,Catheterized Urine Culture - Preliminary Gram Negative Rods 11/23/22 22:21 Blood Blood Culture - Preliminary 11/23/22 22:21 Blood Blood Culture - Preliminary Constitutional: Present no acute distress, morbidly obese and chronically ill appearing Head: Present atraumatic and normocephalic ENT: Present normal exam Neck: Present normal inspection Respiratory: Present crackles (Posterior lung sheriff), diminished air movement and normal respiratory effort; Absent accessory muscle use, rhonchi or wheezes Cardiac: Present Reg Rate and Rhythm GI: Present soft and normal bowel sounds; Absent distention or tenderness Extremities: Present normal inspection, full ROM and edema (2+ edema t
[2022-11-25 18:08] LABS: Anion Gap 10.7 mEq/L (5-15); Blood Urea Nitrogen 31 mg/dl (7-17); Calcium 8.1 mg/dl (8.4-10.2); Carbon Dioxide 31 mmol/L (22.0-30.0); Chloride 101 mmol/L (98-107); Creatinine Clearance Estimated 28 mL/min (50-200); Estimated Glomerular Filt Rate 30 ml/min (>60); GFR (African American) 36 ML/MIN (>60); Glucose 99 mg/dl (74-100); Potassium 3.7 mmoL/L (3.5-5.1); Sodium 139 mmol/L (136-145)
--- NOTE | 2022-11-25 18:55 | PC.NURSE ---
pt spent most fo the shift up to chair. required nicol lift to get up to chair. currently on 3lnc for o2 support. [place] cath removed this evening before shift change.
--- NOTE | 2022-11-25 22:48 | PC.NURSE ---
both ivs to right arm infiltrated, right upper forearm iv infiltrated and discontinued with catheter intact, right wrist iv infiltrated and discontinued with catheter intact. pt tolerated well, new iv started after 3 attempts to right wrist area #22g. pt tolerated well.
[2022-11-26] VITALS (10 sets, daily range): BP systolic 109–149; BP diastolic 58–80; PULSE 70–89; RESP 16–23; TEMP 36.4–37.1; O2SAT 90–94; BMI 55.3
--- NOTE | 2022-11-26 06:10 | PC.NURSE ---
patient slept through the night with no complaints. on 4L NC
[2022-11-26 06:37] LABS: Basophils % 0.5 % (0.1-2.0); Eosinophils # 0.1 K/mm3 (0.0-0.4); Eosinophils % 1.8 % (0.1-12.0); Hematocrit 33.1 % (37.0-47.0); Hemoglobin 10.7 g/dL (12.2-16.2); Lymphocytes # 0.9 K/mm3 (0.7-4.5); Lymphocytes % 14.8 % (10-50); Mean Corpuscular HGB Conc 32.2 g/dL (31.8-35.4); Mean Corpuscular Hemoglobin 28.4 pg (27.0-31.2); Mean Platelet Volume 8.1 fl (7.4-10.4); Monocytes # 0.3 K/mm3 (0.1-1.0); Monocytes % 4.9 % (1.7-9.3); Neutrophils # 4.8 K/mm3 (1.8-7.8); Platelet Count 164 K/mm3 (142-424); Red Blood Count 3.77 M/mm3 (4.20-5.40); Red Cell Distribution Width 17.1 % (11.5-17.5); White Blood Count 6.1 K/mm3 (4.8-10.8)
[2022-11-26 06:47] LABS: Anion Gap 9.4 mEq/L (5-15); Blood Urea Nitrogen 30 mg/dl (7-17); Calcium 7.9 mg/dl (8.4-10.2); Carbon Dioxide 30 mmol/L (22.0-30.0); Chloride 102 mmol/L (98-107); Creatinine Clearance Estimated 30 mL/min (50-200); Estimated Glomerular Filt Rate 32 ml/min (>60); GFR (African American) 38 ML/MIN (>60); Glucose 89 mg/dl (74-100); Magnesium 1.5 mg/dl (1.6-2.3); Potassium 3.4 mmoL/L (3.5-5.1); Sodium 138 mmol/L (136-145)
--- NOTE | 2022-11-26 07:34 | CA_ITS ---
APPROVED REPORT EXAM: Comprehensive 2D, Doppler, and color-flow Echocardiogram Machine Tool Electrician: Dea Tripathi CRT Ht: 5 ft 6 in Wt: 346lbs BSA: 2.52 BP: 132/66 mmHg Indications: Congestive Heart Failure, Non STEMI, Diabetes, Obesity, Hyperlipidemia, Hypertension/HDD, UTI, PVD 2D Dimensions LVOT 2.04 cm (M/F) 1.5-2.5 LA Volume 51.80 mL LA Volume Index 20.00 mL/m2 (M/F) 16-34 M-Mode Dimensions RVDd 3.33 cm (0.9-2.6) LA Diam 4.03 cm (1.9-4.0) LVDd 4.88 cm (3.5-5.7) Ao Diam 4.44 cm (2.0-3.7) LVDs 2.58 cm (3.5-5.7) IVSd 2.08 cm (0.6-1.1) PWd 0.71 cm (0.6-1.1) EF (Teich) 78.40% FS 47.10% EDV (Teich) 111.70 mL ESV (Teich) 24.10 mL LV Diastology E Decel Time 200.00 (160-240 msec) E/A Ratio 0.79 MED E' 4.70 (< 7 cm/sec) MED A' 13.50 cm/s E'/MED E' Ratio 17.81 (>14) LAT E' 14.70 (<10 cm/sec) LAT A' 7.50 cm/s E/LAT E' Ratio 5.69 (>14) Aortic Valve AO Peak GR. 12.40 mmHg Mitral Valve MV A Velocity 106.00 (40-130 cm/s) E/A Ratio 0.79 MV Decel. Time 200.00 (160-240 ms) Pulmonary Valve PV Peak Velocity 213.00 (50-150 cm/s) Tricuspid Valve TR P. Velocity 395.00 cm/s RAP Estimate 10.00 mmHg RVSP 72.50 mmHg Left Ventricle Technically difficult study because of the patient factors and poor acoustic windows. Left atrium is mildly enlarged, left ventricle is normal size mild concentric left ventricular hypertrophy, estimated ejection fraction 55%, with no regional wall motion abnormality, there is flattening of the interventricular septum during systole and diastole consistent with pressure and volume overload in right ventricle. Right Ventricle Right atrium and right ventricle are severely enlarged, contractility of the right ventricle is moderately reduced. Aortic Valve Aortic valve is minimally thickened and fibrosed there is no aortic stenosis aortic insufficiency. Mitral Valve Mitral valve is grossly normal, there is mild mitral regurgitation. Tricuspid Valve Tricuspid valve is grossly normal, there is mild tricuspid regurgitation, calculated right ventricular systolic pressure 70 mmHg. Pulmonic Valve Pulmonic valve is poorly visualized. Great Vessels Aortic root is normal size. Inferior vena cava is poorly visualized. Pericardium No significant pericardial effusion noted. Conclusion 1. Technically difficult study because of the patient factors and poor acoustic windows. Biatrial enlargement, normal left ventricular size mild concentric left ventricular hypertrophy, estimated ejection fraction 55% with no regional wall motion abnormality, there is flattening of the interventricular septum during systole and diastole consistent with pressure and volume overload in right ventricle, Doppler evidence of impaired LV relaxation seen. 2. Markedly enlarged right ventricle with moderate reduction in right ventricular systolic function. 3. Mild mitral and tricuspid regurgitation, calculated right ventricular systolic pressure 70 mmHg. 4. No significant pericardial effusion noted. 5. Inferior vena cava is poorly visualized. Electronically signed by : Ulices Prado MD 11/27/2022 06:33:06
--- NOTE | 2022-11-26 08:06 | EXP.CARD.CON ---
History of Present Illness History of Present Illness Consult date: 11/26/22 Requesting physician: Jones Moy Consult reason: congestive heart failure Chief complaint: CHF, NSTEMI Additional Medical History:: 1. Diabetes mellitus, treated since 2016 2. CKD, A. Stage III with creatinine 1.6, GFR 32 3. Hypertension 4. Morbid obesity 5. Diastolic congestive heart failure, 11/23/2022 A. Echocardiogram 11/26/2022, preliminary EF 55% 6. Rhabdomyolysis, 11/23/2022, secondary to fall with prolonged downtime. No history of unconsciousness. 7. Anemia with hemoglobin of 10-11, 11/2022 8. EKG is sinus rhythm with right bundle branch block, chronicity unknown 9. Hyperlipidemia A. History of myalgias on statin therapy B. Reportedly controlled with red yeast rice History of present illness: Patient is brought in by ambulance. She says that she was getting ready to go the bathroom, had pulled her pants down, and both legs got weak causing her to fall.? Her leg got wedged between the vanity and the commode and she could not get up.? She laid there from the time of the fall about noon until this evening when her grandson found her.? He came to check on her because she was not answering her phone.? She says that she has some pain above her right knee where it was wedged.? Otherwise denies any other injuries.? Her right heel feels a little numb where it was laying on the ground the entire time.? She did not hit her head or injure her neck.? She did not have any chest or abdominal injury.? EMS found her to have a low pulse oximetry (70s) and put her on nasal cannula oxygen.? She states she is always short of breath, she has asthma.? She has never been a smoker and does not have COPD.? She is not on oxygen at home.? She states that she has had a cold with a bad cough for 2 weeks, no fever.? Some diarrhea, no vomiting. The above per VIANEY Alejandra MD Events as noted above confirmed with the patient. She denies any prior history of coronary artery disease, chest pain, pressure or tightness. She has noted an increase in shortness of breath along with lower extremity edema over the last 3 months. She lives a fairly sedentary lifestyle. She does not check her diabetes at home and does not follow a low-salt diet. Troponins during admission noted to increase with peak troponin of 0.4 now declining. Cardiology consulted for new CH with non-ST elevation MD, likely type II, and long-term diabetic. [facility] Disclaimer: The information contained in this section may have been updated after the patient was seen, as this information can be updated by other users. Medical History (Updated 11/26/22 @ 08:17 by CHERIE Ny) Diabetes mellitus, type 2 Hypertension Surgical History History of bilateral ligation of fallopian tubes History of left hip replacement History of right hip replacement LAP-BAND surgery status Family History Family history of hypertension Family history of diabetes mellitus type I Family history of myocardial infarction Family history of hyperlipidemia Social History (Updated 11/24/22 @ 01:58 by Nayla Zepeda RN) Smoking Status: Never smoker alcohol intake: never substance use type: denies use current occupational status: disabled Travel in the last 8 weeks: None Review of Systems Review of Systems Review of systems:: pertinent systems reviewed and negative unless documented below Constitutional Constitutional: Denies headache(s) and Denies weakness ENT Ears, Nose, Mouth, and Throat: Denies headache(s) *Cardiovascular Cardiovascular: Denies chest pain and Reports dyspnea *Respiratory Respiratory: Reports cough and Reports dyspnea *Gastrointestinal Gastrointestinal: Denies nausea and Denies vomiting *Musculoskeletal Musculoskeletal: Reports abnormal gait and Denies numbness *Neurologic Neurologic: Reports
--- NOTE | 2022-11-26 09:51 | HMH.OTEV ---
OT Inpatient Evaluation Rehab OT IP Evaluation Start: 11/24/22 11:09 Freq: ONCE Status: Active Protocol: Document 11/26/22 09:33 [facility] (Rec: 11/26/22 09:51 [id number] Rehab OT IP Assessment Subjective History Pt was admitted to [facility] on due to a uti, chf, fall at home , and acute respitory insuffency with low o2. Pt is seen for skilled OT inital evaluation. Pt agreeable to engage in therapy evaluation. Pt is oriented x3, person, place, and . Pt reports she was independent in all ADLs. Pt reports that she was independent in driving. Pt reports she was able to complete light house cleaning with assistance as needed. She reports she had assistance for grocery shopping tasks. Pt reports that she lived alone. Pt's medical history consists of the following: Diabetes mellitus, type 2 Hypertension Subjective I'm gonna need help getting up. Objective Patient Orientation Person,Place,Birthday Upper Extremity Gross ROM Min Limitation <25% Shoulder ROM Limitations Muscle Weakness Elbow ROM Limitations Muscle Weakness Wrist Limitations of Range of Motion Muscle Weakness Bed Mobility bed mobility-scooting,bed mobility - supine/sit,bed mobility - rolling Assist Level Maximum x 2 (75% assist) Lower Body Dressing Ability Unable/Dependant Performing Toilet Hygiene Ability Unable/Dependant Rehab OT IP prob,goals,plan Problems Date of Evaluation: 11/26/22 OT IP Problems Bed Mobility,Transfers,Balance ,Self care,Safety Rehab Potential Rehab Potential Good Equipment Needs Assistive Devices Standard Walker Plan OT intervention Plan Bed Mobility,Transfers,Balance ,Self care,Safety,Therapeutic Exercise OT Plan Frequency BID Duration LOS Discharge Goals Bed Mobility Ability Assistance x1 Sit to Stand Chair Transfer Ability Moderate x 1 (50% assist) Chair Transfer Ability Mo
--- NOTE | 2022-11-26 11:19 | CARE MANAGER ---
Addendum entered by Charo Matute 11/29/22 09:35: Per Ирина estrada/ [facility] bariatric bed should be delivered today by 2PM. Addendum entered by Charo Matute 11/28/22 09:40: Ирина estrada/ [facility] stated that they are waiting on bariatric bed to be delivered today. I have informed Ирина that patient is medically stable for discharge today. Patient does have PICC placed for 2 weeks of 2g IV Rocephin. I will continue to follow up with Ирина regarding bed delivery. Addendum entered by Halle Alfred RN 11/27/22 09:40: [facility] has accepted the patient, and has ordered a bariatric bed which should be delivered today. Patient now has positive blood cultures, so she will require a PICC and IV antibiotics. Not ready for discharge today. Ирина notified that patient will require IV antibiotics upon discharge, and CM will update her once an antibiotic has been decided upon. Addendum entered by Halle Alfred RN 11/26/22 12:32: [facility] is planning to come see patient today. Original Note: I spoke with patient this morning regarding consult for SNF placement. Patient is agreeable to go to rehab and signed patient choice for [facility], [facility] and [facility]. Referral was faxed to all three. CM will continue to follow.
--- NOTE | 2022-11-26 12:36 | CT_ITS ---
FINAL REPORT TECHNIQUE: Axial imaging of the chest is obtained after the administration of contrast. 3-D MIP reformatted images were also obtained and reviewed per PE protocol. CLINICAL HISTORY: suspected PE, new onset O2 requirement,Obese,RBBB FINDINGS: The pulmonary arteries are well filled. There is no evidence of pulmonary embolus. There is no aortic dissection or intimal flap. There is no hilar or axillary lymphadenopathy. There are enlarged mediastinal lymph nodes. A right paratracheal lymph node measures 2.7 cm. There are small right and trace left pleural effusions. There is no pericardial effusion. There are mild ground-glass opacities. Mild edema cannot be excluded. There is a 1 cm nodule in the left upper lobe on image 59. There is bilateral lower lobe airspace disease concerning for pneumonia.. There is a nodular liver contour and a small amount of perihepatic ascites. A lap band is present. Evaluation of the remainder of the upper abdomen is limited by patient body habitus. There is no acute osseous abnormality. There are nonspecific right shoulder periarticular calcifications. IMPRESSION: No evidence of pulmonary embolism or aortic dissection. Bilateral pleural effusions with possible lower lobe pneumonia. A 1 cm left upper lobe noncalcified nodule. Recommend 3 month follow-up or PET-CT. Mediastinal adenopathy could be reactive or neoplastic. Possible mild edema. Reviewed, Interpreted and Dictated by Julia Bean MD Transcribed by Manjinder Calzada Authenticated and [facility]
--- NOTE | 2022-11-26 14:15 | HMH.ITSTN ---
I called and spoke with nurse. She said she would call once she had an IV in the AC.
--- NOTE | 2022-11-26 16:04 | EXP.ACUTE.PN ---
Subjective *Date: 11/26/22 *Time: 23:34 Interval history: Patient appears stable this morning. Able to wean to 3 L nasal cannula by morning rounds. Diuresing well. -1.5 L in the past 24 hours (-6L) total since admission. Echo obtained this morning. Patient tolerating p.o. intake. Denies any nausea, chest pain, diarrhea, palpitations. Improved edema in legs. Medical Exam Vital signs and Labs for Last 24 Hours: Vital Signs Temp Pulse Pulse Resp BP Pulse Ox 11/26/22 20:00 98.4 F 77 18 125/59 L 91 L 11/26/22 19:03 92 L 11/26/22 16:00 80 11/26/22 12:00 80 11/26/22 08:00 85 11/26/22 15:48 98.4 F 75 22 109/58 L 93 L 11/26/22 08:00 93 L 11/26/22 11:23 97.6 F 79 20 118/80 94 L 11/26/22 08:00 98.5 F 88 23 149/77 H 93 L 11/26/22 06:26 94 L 11/26/22 04:00 98.5 F 85 18 122/58 L 92 L 11/26/22 04:00 75 11/26/22 00:00 98.7 F 89 16 116/59 L 90 L Intake and Output 11/26/22 11/26/22 11/26/22 07:59 15:59 23:59 Intake Total 600 / 1210 610 / 1210 Output Total 800 / 1801 1800 1000 / 1801 Balance -800 / -591 599 / -591 -390 / -591 Intake: Intake, Oral Amount 600 / 960 360 / 960 Intake, Total IV Amount 250 / 250 Ringers Solution,Lactated 250 250 / 250 ml @ 250 mls/hr IV .Q1H NEHEMIAH Rx# :[id number] Output: Output, Urine Amount 800 / 1801 1800 1000 / 1801 Other: Number of Unmeasured Voids 0 1 Weight 156.224 kg 156 kg Patient Weight 11/26/22 23:59 Weight 156 kg Laboratory Results - last 24 hr 11/26/22 06:13: WBC 6.1, RBC 3.77 L, Hgb 10.7 L, Hct 33.1 L, MCV 88.0, MCH 28.4, MCHC 32.2, RDW 17.1, Plt Count 164, MPV 8.1, Neut % (Auto) 78.0, Lymph % (Auto) 14.8, [place] % (Auto) 4.9, Eos % (Auto) 1.8, Baso % (Auto) 0.5, Neut # (Auto) 4.8, Lymph # (Auto) 0.9, [place] # (Auto) 0.3, Eos # (Auto) 0.1, Baso # (Auto) 0.0 11/26/22 06:13: Sodium 138, Potassium 3.4 L, Chloride 102, Carbon Dioxide 30, Anion Gap 9.4, BUN 30 H, Creatinine 1.60 H, Estimated Creat Clear 30, Estimated GFR 32 L, Est GFR ( Amer) 38 L, Glucose 89, Calcium 7.9 L, Magnesium 1.5 L D I & O for Labs for Last 24 Hours: Intake & Output 11/23/22 11/24/22 11/25/22 11/26/22 23:59 23:59 23:59 23:59 Intake Total 1680 / 1800 1140 / 1140 1210 / 1210 Output Total 5100 / 5100 2800 / 3000 1801 / 1801 Balance -3420 / -3300 -1660 / -1860 -591 / -591 Weight 154.221 kg 156.943 kg 155.5 kg 156 kg Microbiology Reports for the Last 24 Hours: Microbiology 11/23/22 22:21 Blood Blood Culture - Preliminary Gram Negative Rods 11/23/22 22:21 Blood Blood Culture - Preliminary Gram Negative Rods 11/23/22 23:04 Urine,Catheterized Urine Culture - Final Klebsiella pneumoniae Constitutional: Present no acute distress, morbidly obese and chronically ill appearing Head: Present atraumatic and normocephalic ENT: Present normal exam Neck: Present normal inspection Respiratory: Present crackles (Posterior lung sheriff), diminished air movement and normal respiratory effort; Absent accessory muscle use, rhonchi or wheezes Cardiac: Present Reg Rate and Rhythm GI: Present soft and normal bowel sounds; Absent distention or tenderness Extremities: Present normal inspection, full ROM and edema (2+ edema to knees, chronic stasis changes) Skin: Present intact and erythema (Lateral stasis erythema on lower extremities. Scant weeping of right lower extremity. No bleeding. No warmth or erythema streaking up legs.) Neuro: Present Grossly Intact and moves all extremities Assessment and Plan *Assessment and plan (1) Acute respiratory failure with hypoxia: Status: Acute Category: Medical Code(s): J96.01 - Acute respiratory failure with hypoxia (2) Non-ST elevated myocardial infarction: Status: Acute Category: Medical Code(s): I21.4 - Non
--- NOTE | 2022-11-26 18:52 | PC.NURSE ---
pt has rested the majority of shift, has remained on 4L NC, does become SOA with exertion, no complaints of pain, did have one episode of vomiting, pt states she is not nauseous though
[2022-11-27] VITALS (10 sets, daily range): BP systolic 110–125; BP diastolic 51–76; PULSE 67–90; RESP 16–24; TEMP 36.4–36.8; O2SAT 91–94; BMI 53.6
--- NOTE | 2022-11-27 04:48 | PC.NURSE ---
Pt. has slept most of the night with no c/o of pain of sob. Pt. on 02 4L [place] sats in the low 90's.
[2022-11-27 07:28] LABS: Basophils % 0.7 % (0.1-2.0); Eosinophils # 0.1 K/mm3 (0.0-0.4); Eosinophils % 1.8 % (0.1-12.0); Hematocrit 35.5 % (37.0-47.0); Hemoglobin 11.1 g/dL (12.2-16.2); Lymphocytes # 0.8 K/mm3 (0.7-4.5); Mean Corpuscular HGB Conc 31.2 g/dL (31.8-35.4); Mean Corpuscular Volume 89.7 fl (81-99); Mean Platelet Volume 8.1 fl (7.4-10.4); Monocytes # 0.3 K/mm3 (0.1-1.0); Monocytes % 5.4 % (1.7-9.3); Neutrophils # 3.9 K/mm3 (1.8-7.8); Neutrophils % 77.1 % (37.0-80.0); Platelet Count 146 K/mm3 (142-424); Red Blood Count 3.96 M/mm3 (4.20-5.40); Red Cell Distribution Width 16.8 % (11.5-17.5); White Blood Count 5.1 K/mm3 (4.8-10.8)
[2022-11-27 07:32] LABS: Alanine Aminotransferase 9 U/L (12-78); Albumin Level 3.3 g/dl (3.5-5.0); Albumin/Globulin Ratio 0.9 (1.1-1.8); Alkaline Phosphatase 79 U/L (38-126); Anion Gap 10.3 mEq/L (5-15); Aspartate Amino Transferase 23 U/L (14-36); Bilirubin,Total 0.7 mg/dl (0.2-1.3); Blood Urea Nitrogen 27 mg/dl (7-17); Calcium 8.1 mg/dl (8.4-10.2); Carbon Dioxide 31 mmol/L (22.0-30.0); Chloride 101 mmol/L (98-107); Creatinine Clearance Estimated 32 mL/min (50-200); Estimated Glomerular Filt Rate 34 ml/min (>60); GFR (African American) 41 ML/MIN (>60); Globulin 3.6 g/dL (1.3-3.2); Glucose 91 mg/dl (74-100); Magnesium 1.9 mg/dl (1.6-2.3); Potassium 3.3 mmoL/L (3.5-5.1); Sodium 139 mmol/L (136-145); Total Protein,Serum 6.9 g/dl (6.3-8.2)
--- NOTE | 2022-11-27 10:26 | EXP.CARD.PN ---
Subjective Subjective Date: 11/27/22 Time: 09:30 Principal diagnosis: acute diastolic CHF Interval history: This is a 72-year-old white female who fell at home after her legs gave out when she was trying to go to the bathroom. The patient was wedged between the vanity in the commode and could not get up. She laid there from about noon until the evening when her grandson found her. He had come to check on her because she was not answering the phone. When EMS arrived her pulse oximetry was in the 70s and she was put on nasal cannula. The patient reports that she is always short of breath but does think it was maybe a little worse than normal. She had lower extremity edema that she states started approximately 3 months ago with the increased shortness of breath. She lives a fairly sedentary lifestyle. She denied any chest pain or pressure. She has been diuresed with IV Lasix and this morning she states that her shortness of breath is probably better than it was when she came into the hospital but she is still requiring oxygen and short of breath with exertion. It does improve with rest. She states her bilateral lower extremity edema has improved. She did have a slightly elevated troponin on admission which is most likely a type II MS from an acute exacerbation of diastolic congestive heart failure. She denies any fever, chills, nausea, vomiting or diarrhea. Exam Data for Last 24 hours Vital signs and Labs for Last 24 Hours: Temp Pulse Resp BP Pulse Ox 97.6 F 71 19 110/56 L 94 L 11/27/22 08:00 11/27/22 08:00 11/27/22 08:00 11/27/22 08:00 11/27/22 08:00 Laboratory Results - last 24 hr 11/23/22 23:04: Urine Color Yellow, Urine Appearance Clear, Urine pH 7.0, Ur Specific [place] 1.015, Urine Protein 2+, Urine Glucose (UA) Negative, Urine Ketones 1+, Urine Blood 3+, Urine Nitrate Positive, Urine Bilirubin Negative, Urine Urobilinogen 1.0, Ur Leukocyte Esterase 3+ A, Urine RBC 20-50, Urine WBC 50-100, Urine Bacteria 1+ 11/27/22 06:35: WBC 5.1, RBC 3.96 L, Hgb 11.1 L, Hct 35.5 L, MCV 89.7, MCH 28.0, MCHC 31.2 L, RDW 16.8, Plt Count 146, MPV 8.1, Neut % (Auto) 77.1, Lymph % (Auto) 15.0, [place] % (Auto) 5.4, Eos % (Auto) 1.8, Baso % (Auto) 0.7, Neut # (Auto) 3.9, Lymph # (Auto) 0.8, [place] # (Auto) 0.3, Eos # (Auto) 0.1, Baso # (Auto) 0.0 11/27/22 06:35: Sodium 139, Potassium 3.3 L, Chloride 101, Carbon Dioxide 31 H, Anion Gap 10.3, BUN 27 H, Creatinine 1.50 H, Estimated Creat Clear 32, Estimated GFR 34 L, Est GFR ( Amer) 41 L, Glucose 91, Calcium 8.1 L, Magnesium 1.9 D, Total Bilirubin 0.7, AST 23 D, ALT 9 L D, Alkaline Phosphatase 79, Total Protein 6.9, Albumin 3.3 L, Globulin 3.6 H, Albumin/Globulin Ratio 0.9 L I & O for Last 24 hours: Intake & Output 11/24/22 11/25/22 11/26/22 11/27/22 23:59 23:59 23:59 23:59 Intake Total 1680 / 1800 1140 / 1140 1210 / 1260 50 / 50 Output Total 5100 / 5100 2800 / 3000 1801 / 1801 800 / 800 Balance -3420 / -3300 -1660 / -1860 -591 / -541 -750 / -750 Weight 346 lb 342 lb 13.101 oz 343 lb 14.738 oz 333 lb 6.4 oz Microbiology Reports for the Last 24 Hours: Microbiology 11/23/22 22:21 Blood Blood Culture - Preliminary Klebsiella pneumoniae 11/23/22 22:21 Blood Blood Culture - Final Klebsiella pneumoniae 11/23/22 23:04 Urine,Catheterized Urine Culture - Final Klebsiella pneumoniae Proteus mirabilis Narrative: echo shows: 1.? Technically difficult study because of the patient factors and poor acoustic windows.? Biatrial enlargement, normal left ventricular size mild concentric left ventricular hypertrophy, estimated ejection fraction 55% with no regional wall motion abnormality, there is flattening of the interventricular septum during systole and diastole consistent with pressure and volume overload in right ventricle, Doppler evidence of impaired LV relaxation see
--- NOTE | 2022-11-27 11:52 | EXP.PHA.PN ---
Subjective *Date: 11/27/22 *Time: 11:52 Medical Exam Vital signs and Labs for Last 24 Hours: Vital Signs Temp Pulse Pulse Resp BP Pulse Ox 11/27/22 11:28 98.1 F 70 22 110/75 94 L 11/27/22 08:00 73 11/27/22 08:00 97.6 F 71 19 110/56 L 94 L 11/27/22 06:10 75 11/27/22 06:10 76 11/27/22 06:10 94 L 11/27/22 04:00 90 11/27/22 04:00 98.2 F 68 16 125/63 92 L 11/27/22 00:00 98 F 76 16 124/62 92 L 11/26/22 20:00 94 L 11/26/22 20:00 98.4 F 77 18 125/59 L 91 L 11/26/22 19:03 92 L 11/26/22 16:00 80 11/26/22 12:00 80 11/26/22 15:48 98.4 F 75 22 109/58 L 93 L Intake and Output 11/26/22 11/27/22 11/27/22 23:59 07:59 15:59 Intake Total 610 / 1260 50 / 50 Output Total 1000 / 1801 800 / 800 Balance -390 / -541 -750 / -750 Intake: Intake, Oral Amount 360 / 960 Intake, Total IV Amount 250 / 300 50 / 50 Ceftriaxone 1 gm 1 gm In 0.9 % 50 / 50 Sodium Chloride 50 ml @ 100 mls /hr IV Q24H NEHEMIAH Rx#:[id number] Ringers Solution,Lactated 250 250 / 250 ml @ 250 mls/hr IV .Q1H NEHEMIAH Rx# :[id number] Output: Output, Urine Amount 1000 / 1801 800 / 800 Other: Weight 151.228 kg Patient Weight 11/27/22 23:59 Weight 151.228 kg Laboratory Results - last 24 hr 11/23/22 23:04: Urine Color Yellow, Urine Appearance Clear, Urine pH 7.0, Ur Specific [place] 1.015, Urine Protein 2+, Urine Glucose (UA) Negative, Urine Ketones 1+, Urine Blood 3+, Urine Nitrate Positive, Urine Bilirubin Negative, Urine Urobilinogen 1.0, Ur Leukocyte Esterase 3+ A, Urine RBC 20-50, Urine WBC 50-100, Urine Bacteria 1+ 01/17/23 06:35: WBC 5.1, RBC 3.96 L, Hgb 11.1 L, Hct 35.5 L, MCV 89.7, MCH 28.0, MCHC 31.2 L, RDW 16.8, Plt Count 146, MPV 8.1, Neut % (Auto) 77.1, Lymph % (Auto) 15.0, [place] % (Auto) 5.4, Eos % (Auto) 1.8, Baso % (Auto) 0.7, Neut # (Auto) 3.9, Lymph # (Auto) 0.8, [place] # (Auto) 0.3, Eos # (Auto) 0.1, Baso # (Auto) 0.0 11/27/22 06:35: Sodium 139, Potassium 3.3 L, Chloride 101, Carbon Dioxide 31 H, Anion Gap 10.3, BUN 27 H, Creatinine 1.50 H, Estimated Creat Clear 32, Estimated GFR 34 L, Est GFR ( Amer) 41 L, Glucose 91, Calcium 8.1 L, Magnesium 1.9 D, Total Bilirubin 0.7, AST 23 D, ALT 9 L D, Alkaline Phosphatase 79, Total Protein 6.9, Albumin 3.3 L, Globulin 3.6 H, Albumin/Globulin Ratio 0.9 L I & O for Labs for Last 24 Hours: Intake & Output 11/24/22 11/25/22 11/26/22 11/27/22 23:59 23:59 23:59 23:59 Intake Total 1680 / 1800 1140 / 1140 1210 / 1260 50 / 50 Output Total 5100 / 5100 2800 / 3000 1801 / 1801 800 / 800 Balance -3420 / -3300 -1660 / -1860 -591 / -541 -750 / -750 Weight 156.943 kg 155.5 kg 156 kg 151.228 kg Microbiology Reports for the Last 24 Hours: Microbiology 11/23/22 22:21 Blood Blood Culture - Preliminary Klebsiella pneumoniae 11/23/22 22:21 Blood Blood Culture - Final Klebsiella pneumoniae 11/23/22 23:04 Urine,Catheterized Urine Culture - Final Klebsiella pneumoniae Proteus mirabilis The patient's infection will respond to the chosen ABx?: Yes Is the patient receiving the right drug, dose, and route?: Yes Could a more targeted ABx be ordered?: No (KLEBSIELLA AND PROTEUS + URINE CX. KLEBSIELLA + BLD. SENSITIVE TO ROCEPHIN.)
--- NOTE | 2022-11-27 13:11 | XR_ITS ---
FINAL REPORT CLINICAL HISTORY: Confirm PICC line placement FINDINGS: A portable view of the chest was obtained. A left-sided PICC line terminates in the SVC. Cardiomegaly is noted.. There are low lung volumes with bibasilar opacities. There is no pleural effusion or pneumothorax. IMPRESSION: Left-sided PICC line terminates in the SVC. Bibasilar opacities could represent atelectasis versus pneumonia. Reviewed, Interpreted and Dictated by Julia Bean MD Transcribed by Manjinder Calzada Authenticated and . [facility]
--- NOTE | 2022-11-27 13:15 | EXP.PN ---
Subjective *Date: 11/27/22 *Time: 13:15 Interval history: Date of service November 27, 2022 The patient reports that she is breathing better. She is accompanied by her relative. I am accompanied by several members of the multidisciplinary rounds team. Nursing staff report that she remains afebrile with stable vital signs and saturating appropriately on supplemental oxygen at 4 L. She reports no home O2. Her echocardiogram identified an ejection fraction of 55% with elevated RVSP of 73 mmHg. Cardiology is following. Review of the record identifies CT scan of the abdomen in 2019 with bilateral renal calculi. Staff report that her urine culture grew out Klebsiella and Proteus and now her blood cultures are positive x2 for Klebsiella. She has been started on IV Rocephin after review of sensitivities. Exam Data for Last 24 hours Vital signs and Labs for Last 24 Hours: Temp Pulse Resp BP Pulse Ox 98.1 F 70 22 110/75 94 L 11/27/22 11:28 11/27/22 11:28 11/27/22 11:28 11/27/22 11:28 11/27/22 11:28 Laboratory Results - last 24 hr 11/23/22 23:04: Urine Color Yellow, Urine Appearance Clear, Urine pH 7.0, Ur Specific [place] 1.015, Urine Protein 2+, Urine Glucose (UA) Negative, Urine Ketones 1+, Urine Blood 3+, Urine Nitrate Positive, Urine Bilirubin Negative, Urine Urobilinogen 1.0, Ur Leukocyte Esterase 3+ A, Urine RBC 20-50, Urine WBC 50-100, Urine Bacteria 1+ 11/27/22 06:35: WBC 5.1, RBC 3.96 L, Hgb 11.1 L, Hct 35.5 L, MCV 89.7, MCH 28.0, MCHC 31.2 L, RDW 16.8, Plt Count 146, MPV 8.1, Neut % (Auto) 77.1, Lymph % (Auto) 15.0, [place] % (Auto) 5.4, Eos % (Auto) 1.8, Baso % (Auto) 0.7, Neut # (Auto) 3.9, Lymph # (Auto) 0.8, [place] # (Auto) 0.3, Eos # (Auto) 0.1, Baso # (Auto) 0.0 11/27/22 06:35: Sodium 139, Potassium 3.3 L, Chloride 101, Carbon Dioxide 31 H, Anion Gap 10.3, BUN 27 H, Creatinine 1.50 H, Estimated Creat Clear 32, Estimated GFR 34 L, Est GFR ( Amer) 41 L, Glucose 91, Calcium 8.1 L, Magnesium 1.9 D, Total Bilirubin 0.7, AST 23 D, ALT 9 L D, Alkaline Phosphatase 79, Total Protein 6.9, Albumin 3.3 L, Globulin 3.6 H, Albumin/Globulin Ratio 0.9 L I & O for Last 24 hours: Intake & Output 11/24/22 11/25/22 11/26/22 11/27/22 23:59 23:59 23:59 23:59 Intake Total 1680 / 1800 1140 / 1140 1210 / 1260 50 / 50 Output Total 5100 / 5100 2800 / 3000 1801 / 1801 800 / 800 Balance -3420 / -3300 -1660 / -1860 -591 / -541 -750 / -750 Weight 156.943 kg 155.5 kg 156 kg 151.228 kg Microbiology Reports for the Last 24 Hours: Microbiology 11/23/22 22:21 Blood Blood Culture - Preliminary Klebsiella pneumoniae 11/23/22 22:21 Blood Blood Culture - Final Klebsiella pneumoniae 11/23/22 23:04 Urine,Catheterized Urine Culture - Final Klebsiella pneumoniae Proteus mirabilis Constitutional Constitutional: no acute distress *Routine HEENT Exam Head: Present normocephalic Eye: Present EOMI and PERRL ENT: Present mucous membranes moist *Routine Neck Exam Neck: Present supple; Absent lymphadenopathy *Routine Respiratory Exam Respiratory: Present rales, rhonchi and normal respiratory effort *Routine Cardiovascular Exam Cardiovascular: Present RRR *Routine Abdominal Exam Abdominal: Present soft and normoactive bowel sounds; Absent tenderness *Routine Extremities Exam Comments: Bilateral lower extremity edema with chronic venous stasis changes and mild erythema *Routine Skin Exam Skin: Present warm; Absent rash *Routine Neurological Exam Neurological: Present alert and oriented X3 Assessment and Plan *Assessment and plan (1) Bacteremia due to Klebsiella pneumoniae: Status: Acute Category: Medical Code(s): R78.81 - Bacteremia; B96.1 - Klebsiella pneumoniae [K. pneumoniae] as the cause of diseases classified elsewhere (2) Acute respiratory failure with hypoxia: Status: Acute
--- NOTE | 2022-11-27 16:50 | PC.NURSE ---
pt alert x4. pt was on 5l o2 via nc at beginning of shift, pt now on 3l nc tolerating welll with sats around 95-96%. picc inserted, pt reports arms hurting, no other c/o. pt has had 2 liquid bm, pt states this has been her normal. adequate uop. ble red with scaly patches in areas. cb and personal items within reach.
[2022-11-28] VITALS (8 sets, daily range): BP systolic 80–137; BP diastolic 40–72; PULSE 64–85; RESP 17–20; TEMP 36.6–37.1; O2SAT 91–100; BMI 53.6
--- NOTE | 2022-11-28 05:07 | PC.NURSE ---
Manal BP 80/40 0400. CONFERENCE PLANNING MANAGER aware, no new orders. 0455- BP 105/49
--- NOTE | 2022-11-28 05:17 | PC.NURSE ---
FSBS 92
[2022-11-28 05:50] LABS: POC Glucose,Bedside 92 (70-110)
--- NOTE | 2022-11-28 06:28 | PC.NURSE ---
Pt A&OX4. Remains on 3L NC O2 sat >90%. LS diminished. Sinus arrhythmia with BBB and inverted T waves on tele. Pt has had 325 ml urine output and 2 unmeasured voids this shift. 2 loose stools this shift. Voids per purewick. See skin issues in bio
[2022-11-28 07:06] LABS: Basophils # 0.1 K/mm3 (0-0.2); Basophils % 0.8 % (0.1-2.0); Eosinophils # 0.2 K/mm3 (0.0-0.4); Eosinophils % 2.6 % (0.1-12.0); Hematocrit 33.7 % (37.0-47.0); Hemoglobin 10.7 g/dL (12.2-16.2); Mean Corpuscular HGB Conc 31.9 g/dL (31.8-35.4); Mean Corpuscular Hemoglobin 28.5 pg (27.0-31.2); Mean Corpuscular Volume 89.3 fl (81-99); Mean Platelet Volume 9.3 fl (7.4-10.4); Monocytes # 0.4 K/mm3 (0.1-1.0); Monocytes % 6.1 % (1.7-9.3); Neutrophils # 4.2 K/mm3 (1.8-7.8); Neutrophils % 72.6 % (37.0-80.0); Platelet Count 149 K/mm3 (142-424); Red Blood Count 3.77 M/mm3 (4.20-5.40); Red Cell Distribution Width 16.7 % (11.5-17.5); White Blood Count 5.8 K/mm3 (4.8-10.8)
[2022-11-28 07:18] LABS: Anion Gap 3.4 mEq/L (5-15); Blood Urea Nitrogen 29 mg/dl (7-17); Carbon Dioxide 35 mmol/L (22.0-30.0); Chloride 103 mmol/L (98-107); Creatinine Clearance Estimated 30 mL/min (50-200); Estimated Glomerular Filt Rate 32 ml/min (>60); GFR (African American) 38 ML/MIN (>60); Glucose 88 mg/dl (74-100); Potassium 3.4 mmoL/L (3.5-5.1); Sodium 138 mmol/L (136-145)
[2022-11-28 07:38] LABS: NT Pro Brain Natriuretic Pep. 12800 pg/mL (0-125)
[2022-11-28 07:46] LABS: Procalcitonin 0.283 ng/mL (0.0-2.0)
--- NOTE | 2022-11-28 09:11 | EXP.CARD.PN ---
Subjective Subjective Date: 11/28/22 Time: 08:30 Principal diagnosis: acute diastolic CHF Interval history: This is a 72-year-old female who was admitted to the hospital after a fall at home. The patient was found to be in an acute exacerbation of diastolic congestive heart failure. She has been diuresed with IV Lasix and is now on oral Lasix. The patient states that her shortness of breath has significantly improved. She states that she is still short of breath with exertion and with coughing but this is much improved. She states her lower extremity edema has almost essentially resolved. She denies any chest pain or pressure. She denies any fever, chills, nausea, vomiting, diarrhea. The patient did have an elevated troponin which is most likely a type II NE from acute exacerbation of her diastolic congestive heart failure. Exam Data for Last 24 hours Vital signs and Labs for Last 24 Hours: Temp Pulse Resp BP Pulse Ox 98.7 F 69 20 132/68 97 11/28/22 08:00 11/28/22 08:00 11/28/22 08:00 11/28/22 08:00 11/28/22 08:00 Laboratory Results - last 24 hr 11/28/22 04:14: POC Glucose 92 11/28/22 06:50: WBC 5.8, RBC 3.77 L, Hgb 10.7 L, Hct 33.7 L, MCV 89.3, MCH 28.5, MCHC 31.9, RDW 16.7, Plt Count 149, MPV 9.3, Neut % (Auto) 72.6, Lymph % (Auto) 18.0, [place] % (Auto) 6.1, Eos % (Auto) 2.6, Baso % (Auto) 0.8, Neut # (Auto) 4.2, Lymph # (Auto) 1.0, [place] # (Auto) 0.4, Eos # (Auto) 0.2, Baso # (Auto) 0.1 11/28/22 06:50: Sodium 138, Potassium 3.4 L, Chloride 103, Carbon Dioxide 35 H, Anion Gap 3.4 L, BUN 29 H, Creatinine 1.60 H, Estimated Creat Clear 30, Estimated GFR 32 L, Est GFR ( Amer) 38 L, Glucose 88, Calcium 8.0 L 11/28/22 06:50: Procalcitonin 0.283 11/28/22 06:50: NT-Pro-B Natriuret Pep 83759 H I & O for Last 24 hours: Intake & Output 11/25/22 11/26/22 11/27/22 11/28/22 23:59 23:59 23:59 23:59 Intake Total 1140 / 1140 1210 / 1260 50 / 50 480 / 480 Output Total 2800 / 3000 1801 / 1801 1300 / 1300 325 / 325 Balance -1660 / -1860 -591 / -541 -1250 / -1250 155 / 155 Weight 342 lb 13.101 oz 343 lb 14.738 oz 333 lb 6.4 oz 333 lb 6.4 oz Microbiology Reports for the Last 24 Hours: Microbiology 11/23/22 22:21 Blood Blood Culture - Preliminary Klebsiella pneumoniae 11/23/22 22:21 Blood Blood Culture - Final Klebsiella pneumoniae 11/23/22 23:04 Urine,Catheterized Urine Culture - Final Klebsiella pneumoniae Proteus mirabilis Constitutional Constitutional: no acute distress and morbidly obese *Routine HEENT Exam Head: Present normocephalic and atraumatic ENT: Present mucous membranes moist *Routine Neck Exam Neck: Present supple, full ROM and normal carotid upstroke; Absent JVD, carotid bruit or lymphadenopathy *Routine Respiratory Exam Respiratory: Present CTA bilaterally, normal respiratory effort, able to speak in complete sentences and symmetric chest movement *Routine Cardiovascular Exam Cardiovascular: Present RRR, Normal S1 and Normal S2; Absent murmur or gallop *Routine Abdominal Exam Abdominal: Present soft and normoactive bowel sounds; Absent tenderness, distended or organomegaly *Routine Extremities Exam Extremities: Present edema (trace BLE edema ), full ROM, pulses intact and normal capillary refill; Absent cyanosis or clubbing *Routine Skin Exam Skin: Present intact and warm; Absent erythema *Routine Neurological Exam Neurological: Present alert, oriented X3 and CN II-XII intact; Absent sensory deficit or motor deficit Routine Psychiatric Exam Psychiatric: Present normal affect Progress Note: A&P Assessment and plan (1) Acute diastolic (congestive) heart failure: Status: Acute (2) Non-ST elevated myocardial infarction: Status: Acute (3) Bacteremia due to Klebsiella pneumoniae: Status: Acute (4) Acute respiratory failure with hypoxia: Status: Acute (5)
--- NOTE | 2022-11-28 11:42 | EXP.PN ---
Subjective *Date: 11/28/22 *Time: 11:42 Interval history: Date of service November 28, 2022 The patient reports no acute events overnight. She is tolerating her therapy with no adverse events. Nursing staff report that she remains afebrile with some low blood pressures and saturating appropriately on her usual home oxygen of 3 L via nasal cannula. They had to hold her morning BP meds. She had a PICC line placed yesterday and a follow-up chest x-ray identified ongoing basilar opacities. Her morning labs have been reviewed and discussed including an improved potassium. Exam Data for Last 24 hours Vital signs and Labs for Last 24 Hours: Temp Pulse Resp BP Pulse Ox 98.7 F 69 20 132/68 97 11/28/22 08:00 11/28/22 08:00 11/28/22 08:00 11/28/22 08:00 11/28/22 08:00 Laboratory Results - last 24 hr 11/28/22 04:14: POC Glucose 92 11/28/22 06:50: WBC 5.8, RBC 3.77 L, Hgb 10.7 L, Hct 33.7 L, MCV 89.3, MCH 28.5, MCHC 31.9, RDW 16.7, Plt Count 149, MPV 9.3, Neut % (Auto) 72.6, Lymph % (Auto) 18.0, [place] % (Auto) 6.1, Eos % (Auto) 2.6, Baso % (Auto) 0.8, Neut # (Auto) 4.2, Lymph # (Auto) 1.0, [place] # (Auto) 0.4, Eos # (Auto) 0.2, Baso # (Auto) 0.1 11/28/22 06:50: Sodium 138, Potassium 3.4 L, Chloride 103, Carbon Dioxide 35 H, Anion Gap 3.4 L, BUN 29 H, Creatinine 1.60 H, Estimated Creat Clear 30, Estimated GFR 32 L, Est GFR ( Amer) 38 L, Glucose 88, Calcium 8.0 L 11/28/22 06:50: Procalcitonin 0.283 11/28/22 06:50: NT-Pro-B Natriuret Pep 94633 H I & O for Last 24 hours: Intake & Output 01/15/23 01/16/23 01/17/23 01/18/23 23:59 23:59 23:59 23:59 Intake Total 1140 / 1140 1210 / 1260 50 / 50 480 / 480 Output Total 2800 / 3000 1801 / 1801 1300 / 1300 325 / 325 Balance -1660 / -1860 -591 / -541 -1250 / -1250 155 / 155 Weight 155.5 kg 156 kg 151.228 kg 151.228 kg Microbiology Reports for the Last 24 Hours: Microbiology 11/23/22 22:21 Blood Blood Culture - Preliminary Klebsiella pneumoniae Constitutional Constitutional: no acute distress *Routine HEENT Exam Head: Present normocephalic Eye: Present EOMI and PERRL ENT: Present mucous membranes moist *Routine Neck Exam Neck: Present supple; Absent lymphadenopathy *Routine Respiratory Exam Respiratory: Present rales, rhonchi and normal respiratory effort *Routine Cardiovascular Exam Cardiovascular: Present RRR *Routine Abdominal Exam Abdominal: Present soft and normoactive bowel sounds; Absent tenderness *Routine Extremities Exam Comments: Bilateral lower extremity edema with chronic venous stasis changes and mild erythema *Routine Skin Exam Skin: Present warm; Absent rash *Routine Neurological Exam Neurological: Present alert and oriented X3 Assessment and Plan *Assessment and plan (1) Bacteremia due to Klebsiella pneumoniae: Status: Acute Category: Medical Code(s): R78.81 - Bacteremia; B96.1 - Klebsiella pneumoniae [K. pneumoniae] as the cause of diseases classified elsewhere (2) Acute respiratory failure with hypoxia: Status: Acute Category: Medical Code(s): J96.01 - Acute respiratory failure with hypoxia (3) UTI (urinary tract infection): Status: Acute Qualifiers: Hematuria presence: without hematuria Urinary tract infection type: acute cystitis Qualified Code(s): N30.00 - Acute cystitis without hematuria Category: Medical Code(s): N39.0 - Urinary tract infection, site not specified (4) Non-ST elevated myocardial infarction: Status: Acute Category: Medical Code(s): I21.4 - Non-ST elevation (NSTEMI) myocardial infarction (5) Congestive heart failure: Status: Acute Qualifiers: Heart failure chronicity: acute on chronic Category: Medical Code(s): I50.9 - Heart failure, unspecified (6) Right bundle branch block: Status: Acute Category: Medical Code(s): I45.10 - Unspecified rig
[2022-11-28 15:10] LABS: Coronavirus 19, PCR Not Detected (NotDetected); Influenza A, PCR Not Detected (NotDetected); Influenza B, PCR Not Detected (NotDetected)
--- NOTE | 2022-11-28 17:43 | PC.NURSE ---
PT ON 3L NC WITH SATS 94-96%, SATS DROP IN 80S ON EXERTION. NON PRODUCTIVE COUGH. BLE REDNESS, +2 EDEMA. PT HAS EXCORIATION IN FOLDS OF GROINS, CLEANED AREA APPLIED POWDER AND PILLOW CASES. BUTTOCKS EXCORIATED, PT HAS A HEMORRHOID THAT BEGAN BLEEDING AFTER BM , EMERIC NOTIFIED, SUPPOSITORY ORDERED AND PT SAID SHE WOULD LIKE TO WAIT TO TAKE. PICC DSG CHANGED. STILL WAITING ON BED A [place]. CB WITHIN REACH. NO CONCERNS AT THIS TIME.
[2022-11-29] VITALS: BP 151/64; PULSE 78; PULSE 79; RESP 16; TEMP 36.8; O2SAT 93
[2022-11-29 04:00] VITALS: BP 145/62; PULSE 70; PULSE 76; RESP 16; TEMP 36.4; O2SAT 94; BMI 53.7
--- NOTE | 2022-11-29 05:04 | PC.NURSE ---
patient alert and oriented x4. on 3L nc. patient had complaints with her bottom hurting. administered the suppository ordered. no other complaints noted
[2022-11-29 08:00] VITALS: BP 122/41; PULSE 70; PULSE 76; RESP 23; TEMP 37; O2SAT 92
--- NOTE | 2022-11-29 09:01 | PC.NURSE ---
per sherry only give half of pts carvedilol.
[2022-11-29 11:35] VITALS: BP 139/54; PULSE 65; RESP 22; TEMP 36.7; O2SAT 95
--- NOTE | 2022-11-29 11:49 | EXP.DC.SUM ---
General Admission date:: 11/24/22 Discharge date: 11/29/22 HPI HPI HPI: Patient is brought in by ambulance. She says that she was getting ready to go the bathroom, had pulled her pants down, and both legs got weak causing her to fall.? Her leg got wedged between the vanity and the commode and she could not get up.? She laid there from the time of the fall about noon until this evening when her grandson found her.? He came to check on her because she was not answering her phone.? She says that she has some pain above her right knee where it was wedged.? Otherwise denies any other injuries.? Her right heel feels a little numb where it was laying on the ground the entire time.? She did not hit her head or injure her neck.? She did not have any chest or abdominal injury.? EMS found her to have a low pulse oximetry (70s) and put her on nasal cannula oxygen.? She states she is always short of breath, she has asthma.? She has never been a smoker and does not have COPD.? She is not on oxygen at home.? She states that she has had a cold with a bad cough for 2 weeks, no fever.? Some diarrhea, no vomiting. The above per VIANEY Alejandra MD. Events as noted above confirmed with the patient.? She denies any prior history of coronary artery disease, chest pain, pressure or tightness.? She has noted an increase in shortness of breath along with lower extremity edema over the last 3 months.? She lives a fairly sedentary lifestyle.? She does not check her diabetes at home and does not follow a low-salt diet. Troponins during admission noted to increase with peak troponin of 0.4 now declining. Hospital Course Hospital Course Hospital Course: The patient was admitted to the medical floor. Cardiology was consulted for her chronic history of HFpEF and elevated troponin. Blood cultures were acquired and she was started on broad-spectrum IV antibiotic therapy. Cardiology recommended a conservative approach for her type II NSTEMI related to her acute dyspneic presentation. Routine pulse oximetry monitoring with oxygen supplementation was provided. It was identified that she is chronically on home O2 approximately 3 L. Her laboratory studies and inflammatory markers were trended. A CTA of the chest identified left lower lobe pneumonia. Her echocardiogram identified an ejection fraction of 55% with diastolic dysfunction. Venous Dopplers identified no DVT. Her medications were adjusted to target ACC guideline directed therapy for her heart failure. Her hemoglobin A1c returned at 5.6%. Her CBC identified no leukocytosis and her hemoglobin remained stable. Her electrolytes, magnesium and creatinine were trended. Her creatinine remained stable. She identified effective diureses and improved dyspnea. Her blood cultures returned positive for Streptococcus with sensitivities reviewed. She will be discharged on IV Rocephin 2 g daily for total duration of care 14 days (until 12/11/2022). Case management assisted with transition of care to [facility]. Exam Data for Last 24 hours Vital signs and Labs for Last 24 Hours: Temp Pulse Resp BP Pulse Ox 98.1 F 65 22 139/54 L 95 11/29/22 11:35 11/29/22 11:35 11/29/22 11:35 11/29/22 11:35 11/29/22 11:35 Laboratory Results - last 24 hr 11/28/22 14:59: SARS-CoV-2 (PCR) Not detected, Influenza A Untype (PCR) Not detected, Influenza Type B (PCR) Not detected I & O for Last 24 hours: Intake & Output 11/26/22 11/27/22 11/28/22 11/29/22 23:59 23:59 23:59 23:59 Intake Total 1210 / 1260 50 / 50 1080 / 1080 360 / 360 Output Total 1801 / 1801 1300 / 1300 725 / 1475 1050 / 1050 Balance -591 / -541 -1250 / -1250 355 / -395 -690 / -690 Weight 156 kg 151.228 kg 151.228 kg 151.613 kg Constitutional Constitutional: no acute distress *Routine HEENT Exam Head: Present normocephalic Eye: Present EOMI and PERRL ENT: Present mucous membranes moist *Routine Neck Exam Neck: Present supple; Absent
--- NOTE | 2022-11-29 12:00 | PC.NURSE ---
dc order in, waiting for lazaro salgado to call with pts bed ready
--- NOTE | 2022-11-30 13:50 | CARE MANAGER ---
Patient discharged to [facility]. Per Josh @ [place], patient is doing well.
== END 2022-11-29 16:05 | DRG 280 ==
LOC: ER 23:57 → 2ND 11-24 00:10
PROVIDERS: Nurse Practitioner Family; Admitting Provider Internal Medicine Adolescent Medicine; Emergency Provider Emergency Medicine; PCP Internal Medicine Adolescent Medicine; Visit Provider Family Medicine
DX: I21.4 Non-ST elevation (NSTEMI) myocardial infarction (principal); I50.33 Acute on chronic diastolic (congestive) heart failure; J96.01 Acute respiratory failure with hypoxia; N30.00 Acute cystitis without hematuria; Z68.43 Body mass index [BMI] 50.0-59.9, adult; R78.81 Bacteremia; I13.0 Hypertensive heart and chronic kidney disease with heart failure and stage 1 through stage 4 chronic kidney disease, or unspecified chronic kidney disease; N17.9 Acute kidney failure, unspecified; E86.0 Dehydration; E66.01 Morbid (severe) obesity due to excess calories; I27.20 Pulmonary hypertension, unspecified; B96.1 Klebsiella pneumoniae [K. pneumoniae] as the cause of diseases classified elsewhere; Z79.899 Other long term (current) drug therapy; N20.9 Urinary calculus, unspecified; N18.32 Chronic kidney disease, stage 3b; E11.65 Type 2 diabetes mellitus with hyperglycemia; E78.5 Hyperlipidemia, unspecified; E87.6 Hypokalemia; B96.4 Proteus (mirabilis) (morganii) as the cause of diseases classified elsewhere; Z99.81 Dependence on supplemental oxygen; T79.6XXA Traumatic ischemia of muscle, initial encounter; W19.XXXA Unspecified fall, initial encounter; D63.1 Anemia in chronic kidney disease; E11.22 Type 2 diabetes mellitus with diabetic chronic kidney disease; Z79.84 Long term (current) use of oral hypoglycemic drugs; Z96.643 Presence of artificial hip joint, bilateral
CPT/HCPCS: 36415; 36569; 51702; 71045; 71275; 72170; 73552; 80048; 80053; 81001; 82550; 82803; 82962; 83036; 83605; 83735; 83880; 84145; 84484; 85007; 85025; 87040; 87077; 87086; 87088; 87186; 93005; 93306; 93970; 94640; 94761; 97162; 97167; 97530; 99291; C1751; C9803; J0696; J3475; Q9967; U0003; U0005

== ENCOUNTER → 2022-12-20 10:58 | Outpatient (CLI) | payer MEDICARE, SELFPAY ==
[2022-12-20 12:47] LABS: Alanine Aminotransferase 24 U/L (12-78); Albumin Level 3.5 g/dl (3.5-5.0); Alkaline Phosphatase 111 U/L (38-126); Anion Gap 10.4 mEq/L (5-15); Aspartate Amino Transferase 27 U/L (14-36); Bilirubin,Direct 0.2 mg/dl (0.0-0.4); Bilirubin,Indirect 0.8 mg/dL (0.0-0.9); Bilirubin,Unconjugated 0.8 mg/dL (0.0-1.1); Blood Urea Nitrogen 36 mg/dl (7-17); Calcium 8.7 mg/dl (8.4-10.2); Carbon Dioxide 29 mmol/L (22.0-30.0); Chloride 103 mmol/L (98-107); Chol/HDL Ratio 2.6 (1-3.5); Cholesterol 107 mg/dl (140-200); Estimated Glomerular Filt Rate 28 ml/min (>60); GFR (African American) 34 ML/MIN (>60); Glucose 78 mg/dl (74-100); HDL Cholesterol 41 mg/dl (40-60); Magnesium 1.8 mg/dl (1.6-2.3); Potassium 4.4 mmoL/L (3.5-5.1); Sodium 138 mmol/L (136-145); Total Protein,Serum 6.5 g/dl (6.3-8.2); Triglycerides 78 mg/dl (30-150); VLDL Cholesterol 16 mg/dL (0-40)
[2022-12-20 12:58] LABS: Direct LDL Cholesterol 51.54 mg/dL (100-129)
== END ==
PROVIDERS: PCP Internal Medicine Adolescent Medicine; Visit Provider Nurse Practitioner
DX: E78.5 Hyperlipidemia, unspecified (principal); N18.9 Chronic kidney disease, unspecified; I27.20 Pulmonary hypertension, unspecified; I50.31 Acute diastolic (congestive) heart failure; I11.0 Hypertensive heart disease with heart failure
CPT/HCPCS: 36415; 80048; 80061; 80076; 83735

== ENCOUNTER → 2023-01-10 12:02 | Outpatient (CLI) | payer MEDICARE, OTHER, SELFPAY | PROVIDERS: PCP Internal Medicine Adolescent Medicine; Visit Provider Nurse Practitioner | DX: R06.00 Dyspnea, unspecified (principal); R07.9 Chest pain, unspecified; R94.31 Abnormal electrocardiogram [ECG] [EKG] | CPT/HCPCS: 78452; 93017; A9502; J2785 ==

== ENCOUNTER → 2023-02-07 12:00 | Outpatient (CLI) | payer MEDICARE, OTHER, SELFPAY ==
[2023-02-07 12:46] LABS: Basophils # 0.1 K/mm3 (0-0.2); Basophils % 0.8 % (0.1-2.0); Eosinophils # 0.1 K/mm3 (0.0-0.4); Eosinophils % 2.1 % (0.1-12.0); Hematocrit 37.1 % (37.0-47.0); Hemoglobin 11.5 g/dL (12.2-16.2); Lymphocytes # 1.2 K/mm3 (0.7-4.5); Lymphocytes % 18.3 % (10-50); Mean Corpuscular HGB Conc 31.1 g/dL (31.8-35.4); Mean Corpuscular Hemoglobin 28.6 pg (27.0-31.2); Mean Corpuscular Volume 92.2 fl (81-99); Mean Platelet Volume 7.8 fl (7.4-10.4); Monocytes # 0.3 K/mm3 (0.1-1.0); Monocytes % 4.2 % (1.7-9.3); Neutrophils # 4.7 K/mm3 (1.8-7.8); Neutrophils % 74.6 % (37.0-80.0); Platelet Count 213 K/mm3 (142-424); Red Blood Count 4.03 M/mm3 (4.20-5.40); Red Cell Distribution Width 16.8 % (11.5-17.5); White Blood Count 6.3 K/mm3 (4.8-10.8)
[2023-02-07 13:49] LABS: Alanine Aminotransferase 16 U/L (12-78); Albumin Level 3.6 g/dl (3.5-5.0); Albumin/Globulin Ratio 1.2 (1.1-1.8); Alkaline Phosphatase 138 U/L (38-126); Anion Gap 10.9 mEq/L (5-15); Aspartate Amino Transferase 22 U/L (14-36); Blood Urea Nitrogen 24 mg/dl (7-17); Calcium 8.6 mg/dl (8.4-10.2); Carbon Dioxide 25 mmol/L (22.0-30.0); Chloride 107 mmol/L (98-107); Estimated Glomerular Filt Rate 34 ml/min (>60); GFR (African American) 41 ML/MIN (>60); Globulin 2.9 g/dL (1.3-3.2); Glucose 78 mg/dl (74-100); Potassium 4.9 mmoL/L (3.5-5.1); Sodium 138 mmol/L (136-145); Total Protein,Serum 6.5 g/dl (6.3-8.2)
== END ==
PROVIDERS: PCP Internal Medicine Adolescent Medicine; Visit Provider Internal Medicine Adolescent Medicine
DX: I10 Essential (primary) hypertension (principal); E11.9 Type 2 diabetes mellitus without complications
CPT/HCPCS: 36415; 80053; 83036; 85025

== ENCOUNTER 2023-02-21 07:26 | Day surgery (SDC) | payer MEDICARE, OTHER, SELFPAY ==
[2023-02-21] VITALS (10 sets, daily range): BP systolic 105–120; BP diastolic 47–60; PULSE 58–68; RESP 16–18; TEMP 36.9; O2SAT 95–100; BMI 47.4
--- NOTE | 2023-02-21 07:11 | IR_ITS ---
APPROVED REPORT Patient Location: Outpatient Travel Med Surg Rn: TIMOTEO Sheridan RT (R) PROCEDURES Left heart catheterization Selective coronary angiogram Catheter placement in the right subclavian artery Right subclavian artery retrograde angiogram INDICATION Abnormal Myoview, Angina pectoris, Right subclavian artery stenosis Informed consent was obtained prior to the procedure. COMPLICATIONS NONE Estimated Blood Loss: LESS THAN 10 ML TECHNIQUE One percent lidocaine used to anesthetize the right anterior aspect of the wrist. The right radial artery was accessed via the Seldinger technique. A 6 German sheath was placed in the right radial artery. 150 mg magnesium sulfate, 800 mcg of nitroglycerin, 1mg Lidocaine and 5000 U Heparin were given through the arterial sheath. There was significant tortuosity in the brachiocephalic artery. An advantage wire was required to traverse the stenosis in the right subclavian artery. Retrograde angiography was performed through a Poppa catheter which demonstrated a tortuous and stenotic vessel. The advantage wire was advanced which allowed advancement of the Poppa catheter. Selective coronary angiography and left heart catheterization were performed. At the end of the procedure the apparatus was removed the sheath was removed hemostasis was achieved using TR banding patient transferred to the postop putting in stable condition ANGIOGRAPHIC RESULTS The left main artery Normal The left anterior descending artery Normal The circumflex artery Normal The right coronary artery Dominant normal The DOWD ventriculogram reveals Not performed The left ventricular end-diastolic pressure Severe to critically elevated at 40 mmHg Right subclavian artery has a 50% stenosis along a tortuous bend IMPRESSION Normal coronary arteries Severely elevated LVEDP consistent with severe diastolic dysfunction Right moderate subclavian artery stenosis PLAN 1. Treatment of diastolic dysfunction with increasing diuretics 2. Medical management for the subclavian stenosis Electronically signed by : Nolan Gilmore MD 02/21/2023 10:20:59
[2023-02-21 07:57] LABS: MANUAL DIFFERENTIAL MANUAL DIFFERENTIAL (MANUAL DIFF)
[2023-02-21 08:00] LABS: Basophils % 0.6 % (0.1-2.0); Eosinophils # 0.1 K/mm3 (0.0-0.4); Eosinophils % 2.4 % (0.1-12.0); Hemoglobin 11.6 g/dL (12.2-16.2); Lymphocytes # 1.3 K/mm3 (0.7-4.5); Lymphocytes % 22.3 % (10-50); Mean Corpuscular HGB Conc 30.5 g/dL (31.8-35.4); Mean Corpuscular Volume 91.8 fl (81-99); Mean Platelet Volume 7.7 fl (7.4-10.4); Monocytes # 0.5 K/mm3 (0.1-1.0); Monocytes % 7.8 % (1.7-9.3); Neutrophils # 3.8 K/mm3 (1.8-7.8); Platelet Count 220 K/mm3 (142-424); Red Blood Count 4.15 M/mm3 (4.20-5.40); Red Cell Distribution Width 16.5 % (11.5-17.5); White Blood Count 5.7 K/mm3 (4.8-10.8)
[2023-02-21 08:12] LABS: Chloride 106 mmol/L (98-107); Potassium 4.3 mmoL/L (3.5-5.1); Sodium 142 mmol/L (136-145)
[2023-02-21 08:15] LABS: Anion Gap 12.3 mEq/L (5-15); Blood Urea Nitrogen 20 mg/dl (7-17); Calcium 8.5 mg/dl (8.4-10.2); Carbon Dioxide 28 mmol/L (22.0-30.0); Creatinine Clearance Estimated 34 mL/min (50-200); Estimated Glomerular Filt Rate 37 ml/min (>60); GFR (African American) 45 ML/MIN (>60); Glucose 92 mg/dl (74-100)
[2023-02-21 08:28] LABS: Eosinophils % 2 % (0-3); Lymphocytes % 23 % (10-50); Monocytes % 10 % (2-9); Neutrophils % 65 % (42-76); Platelet Estimate Normal; RBC Morphology Normal; Total Cells Counted 100
== END 2023-02-21 11:47 | disposition home or self-care (01) ==
PROVIDERS: PCP Internal Medicine Adolescent Medicine; Visit Provider Internal Medicine
DX: I25.10 Atherosclerotic heart disease of native coronary artery without angina pectoris (principal); I13.0 Hypertensive heart and chronic kidney disease with heart failure and stage 1 through stage 4 chronic kidney disease, or unspecified chronic kidney disease; I50.32 Chronic diastolic (congestive) heart failure; I27.20 Pulmonary hypertension, unspecified; N18.32 Chronic kidney disease, stage 3b; Z79.899 Other long term (current) drug therapy; R94.39 Abnormal result of other cardiovascular function study; E11.22 Type 2 diabetes mellitus with diabetic chronic kidney disease; I77.1 Stricture of artery; I70.8 Atherosclerosis of other arteries
CPT/HCPCS: 36225; 80048; 85007; 85014; 85018; 85048; 85049; 93454; 99152; 99153; C1725; C1760; C1769; J1644; Q9967

== ENCOUNTER → 2023-02-25 10:20 | Outpatient (CLI) | payer MEDICARE, OTHER, SELFPAY ==
[2023-02-25 12:29] LABS: Anion Gap 7.5 mEq/L (5-15); Blood Urea Nitrogen 26 mg/dl (7-17); Carbon Dioxide 32 mmol/L (22.0-30.0); Chloride 100 mmol/L (98-107); Estimated Glomerular Filt Rate 26 ml/min (>60); Potassium 4.5 mmoL/L (3.5-5.1); Sodium 135 mmol/L (136-145)
[2023-02-25 12:30] LABS: Calcium 9.1 mg/dl (8.4-10.2); GFR (African American) 31 ML/MIN (>60); Glucose 89 mg/dl (74-100)
== END ==
PROVIDERS: PCP Internal Medicine Adolescent Medicine; Visit Provider Internal Medicine
DX: I25.10 Atherosclerotic heart disease of native coronary artery without angina pectoris (principal)
CPT/HCPCS: 36415; 80048

== ENCOUNTER → 2023-03-28 10:42 | Outpatient (CLI) | payer MEDICARE, OTHER, SELFPAY ==
[2023-03-28 11:33] LABS: Anion Gap 15.4 mEq/L (5-15); Blood Urea Nitrogen 40 mg/dl (7-17); Calcium 8.9 mg/dl (8.4-10.2); Carbon Dioxide 28 mmol/L (22.0-30.0); Chloride 99 mmol/L (98-107); Estimated Glomerular Filt Rate 26 ml/min (>60); GFR (African American) 31 ML/MIN (>60); Glucose 81 mg/dl (74-100); Potassium 4.4 mmoL/L (3.5-5.1); Sodium 138 mmol/L (136-145)
== END ==
PROVIDERS: PCP Internal Medicine Adolescent Medicine; Visit Provider Nurse Practitioner Family
DX: E78.5 Hyperlipidemia, unspecified (principal); I50.32 Chronic diastolic (congestive) heart failure; R06.00 Dyspnea, unspecified
CPT/HCPCS: 36415; 80048

== ENCOUNTER → 2023-04-03 11:10 | Outpatient (CLI) | payer MEDICARE, OTHER, SELFPAY ==
[2023-04-03 11:52] LABS: Anion Gap 19.5 mEq/L (5-15); Blood Urea Nitrogen 28 mg/dl (7-17); Calcium 8.9 mg/dl (8.4-10.2); Carbon Dioxide 19 mmol/L (22.0-30.0); Chloride 103 mmol/L (98-107); Estimated Glomerular Filt Rate 32 ml/min (>60); GFR (African American) 38 ML/MIN (>60); Glucose 100 mg/dl (74-100); Potassium 4.5 mmoL/L (3.5-5.1); Sodium 137 mmol/L (136-145)
== END ==
PROVIDERS: PCP Internal Medicine Adolescent Medicine; Visit Provider Nurse Practitioner Family
DX: N18.30 Chronic kidney disease, stage 3 unspecified (principal)
CPT/HCPCS: 36415; 80048

== ENCOUNTER 2023-08-06 08:23 | Day surgery (SDC) | payer MEDICARE, OTHER, SELFPAY ==
[2023-07-30 14:13] VITALS: BMI 46.0
[2023-08-06] VITALS (7 sets, daily range): BP systolic 108–155; BP diastolic 58–73; PULSE 61–67; RESP 17–18; TEMP 36.1–36.9; O2SAT 94–100
== END 2023-08-06 09:50 | disposition home or self-care (01) ==
PROVIDERS: PCP Internal Medicine Adolescent Medicine; Visit Provider Ophthalmology
PROC: (CPT 66984; principal; 2023-08-06 10:30)
DX: H26.9 Unspecified cataract (principal)
CPT/HCPCS: 66984; V2632

== ENCOUNTER 2023-08-20 08:16 | Day surgery (SDC) | payer MEDICARE, OTHER, SELFPAY ==
[2023-08-20 08:41] VITALS: BP 126/73; PULSE 64; RESP 18; TEMP 36.2; O2SAT 92; BMI 46.7
[2023-08-20 08:59] LABS: POC Glucose,Bedside 96 (70-110)
[2023-08-20 09:23] VITALS: BP 132/67; PULSE 59; RESP 18; O2SAT 96
[2023-08-20 09:28] VITALS: BP 155/72; PULSE 61; RESP 17; O2SAT 100
--- NOTE | 2023-08-20 09:31 | SUR.OPER ---
dr. james aware of pt heart rhythm
[2023-08-20 09:33] VITALS: BP 173/87; PULSE 60; RESP 16; O2SAT 100
[2023-08-20 09:40] VITALS: BP 132/68; PULSE 79; RESP 16; TEMP 36.1; O2SAT 95
[2023-08-20 09:50] VITALS: BP 132/68; PULSE 79; RESP 16; TEMP 36.1; O2SAT 95
== END 2023-08-20 09:50 | disposition home or self-care (01) ==
PROVIDERS: PCP Internal Medicine Adolescent Medicine; Visit Provider Ophthalmology
PROC: (CPT 66984; principal; 2023-08-20 10:30)
DX: E11.36 Type 2 diabetes mellitus with diabetic cataract (principal); H25.9 Unspecified age-related cataract
CPT/HCPCS: 66984; 82962; V2632

== ENCOUNTER 2024-01-01 11:26 | Outpatient (CLI) | payer MEDICARE, OTHER, SELFPAY ==
[2024-01-01 12:16] LABS: Basophils % 0.1 % (0.1-2.0); Eosinophils # 0.1 K/mm3 (0.0-0.4); Eosinophils % 1.4 % (0.1-12.0); Hematocrit 37.5 % (37.0-47.0); Hemoglobin 12.3 g/dL (12.2-16.2); Lymphocytes # 1.2 K/mm3 (0.7-4.5); Lymphocytes % 18.1 % (10-50); Mean Corpuscular HGB Conc 32.7 g/dL (31.8-35.4); Mean Corpuscular Hemoglobin 31.6 pg (27.0-31.2); Mean Corpuscular Volume 96.4 fl (81-99); Mean Platelet Volume 6.9 fl (7.4-10.4); Monocytes # 0.3 K/mm3 (0.1-1.0); Monocytes % 5.1 % (1.7-9.3); Neutrophils # 4.8 K/mm3 (1.8-7.8); Neutrophils % 75.4 % (37.0-80.0); Platelet Count 217 K/mm3 (142-424); Red Blood Count 3.89 M/mm3 (4.20-5.40); Red Cell Distribution Width 13.8 % (11.5-17.5); White Blood Count 6.4 K/mm3 (4.8-10.8)
[2024-01-01 12:55] LABS: Alanine Aminotransferase 14 U/L (12-78); Albumin Level 3.8 g/dl (3.5-5.0); Alkaline Phosphatase 142 U/L (38-126); Anion Gap 9.5 mEq/L (5-15); Aspartate Amino Transferase 23 U/L (14-36); Bilirubin,Direct 0.1 mg/dl (0.0-0.4); Bilirubin,Indirect 0.4 mg/dL (0.0-0.9); Bilirubin,Total 0.5 mg/dl (0.2-1.3); Bilirubin,Unconjugated 0.4 mg/dL (0.0-1.1); Blood Urea Nitrogen 33 mg/dl (7-17); Calcium 9.3 mg/dl (8.4-10.2); Carbon Dioxide 32 mmol/L (22.0-30.0); Chloride 103 mmol/L (98-107); Chol/HDL Ratio 3.2 (1-3.5); Cholesterol 177 mg/dl (140-200); Estimated Glomerular Filt Rate 34 ml/min (>60); GFR (African American) 41 ML/MIN (>60); Glucose 88 mg/dl (74-100); HDL Cholesterol 55 mg/dl (40-60); Magnesium 2.1 mg/dl (1.6-2.3); Potassium 4.5 mmoL/L (3.5-5.1); Sodium 140 mmol/L (136-145); Total Protein,Serum 6.8 g/dl (6.3-8.2); Triglycerides 80 mg/dl (30-150); VLDL Cholesterol 16 mg/dL (0-40)
[2024-01-01 13:06] LABS: Direct LDL Cholesterol 93.79 mg/dL (100-129)
[2024-01-01 13:13] LABS: Free T4 (Free Thyroxine) 1.32 ng/dl (0.78-2.19)
[2024-01-01 13:26] LABS: Thyroid Stimulating Hormone 2.06 uIU/mL (0.465-4.68)
== END 2024-01-01 23:59 ==
LOC: LAB 11:28
PROVIDERS: PCP Internal Medicine Adolescent Medicine; Visit Provider Nurse Practitioner Family
DX: E11.9 Type 2 diabetes mellitus without complications (principal); E66.01 Morbid (severe) obesity due to excess calories; E78.5 Hyperlipidemia, unspecified; I10 Essential (primary) hypertension; I21.4 Non-ST elevation (NSTEMI) myocardial infarction; I27.20 Pulmonary hypertension, unspecified; I45.10 Unspecified right bundle-branch block; I50.9 Heart failure, unspecified; N18.9 Chronic kidney disease, unspecified; R94.31 Abnormal electrocardiogram [ECG] [EKG]; Z68.42 Body mass index [BMI] 45.0-49.9, adult
CPT/HCPCS: 36415; 80048; 80061; 80076; 83735; 84439; 84443; 85025

== ENCOUNTER 2024-01-15 10:09 | Outpatient (CLI) | payer MEDICARE, OTHER, SELFPAY ==
--- NOTE | 2024-01-15 10:15 | CA_ITS ---
APPROVED REPORT EXAM: Comprehensive 2D, Doppler, and color-flow Echocardiogram Perpetual Inventory Clerk: Dinorah Turner RVT Ht: 5 ft 6 in Wt: 304lbs BSA: 2.39 BP: 144/52 mmHg Indications: HTN,ABN EKG,OBESITY,CHF 2D Dimensions LA Volume 67.10 mL LA Volume Index 28.08 mL/m2 (M/F) 16-34 M-Mode Dimensions RVDd 4.02 cm (0.9-2.6) LA Diam 4.41 cm (1.9-4.0) LVDd 3.47 cm (3.5-5.7) LVDs 2.37 cm (3.5-5.7) IVSd 1.69 cm (0.6-1.1) PWd 0.89 cm (0.6-1.1) EF (Teich) 60.80% FS 31.70% EDV (Teich) 49.80 mL TAPSE 2.83 (<1.7) ESV (Teich) 19.50 mL LV Diastology E Decel Time 330 (160-240 msec) E/A Ratio 0.7 Aortic Valve ILANA Index 1.33 cm2/m2 AoV Peak Hung. 158.0 (50-130 cm/s) AO Peak GR. 10.00 mmHg AO Mean GR. 5.20 (<5 mmHg) AO VTI 37.7 (18-25 cm) ILANA (VTI) 3.25 (2.5-4.5 cm2) Mitral Valve MV E Max Hung. 77.0 (40-130 cm/s) MV A Velocity 105.0 (40-130 cm/s) E/A Ratio 0.73 MV PHT 97.0 ms Pulmonary Valve PV Peak Velocity 104.0 (50-150 cm/s) Tricuspid Valve TR P. Velocity 383.00 cm/s RAP Estimate 10.00 mmHg RVSP 68.70 mmHg Left Ventricle The left ventricle is normal size. The left ventricular systolic function is normal. The left ventricular ejection fraction is within the normal range. There is increased LV wall thickness. There is a septal flattening, consistent with RV pressure/volume overload. No regional wall motion abnormalities are noted. Diastolic function is indeterminate. LVEF is 55%. Right Ventricle Right ventricle is severely dilated. Right ventricle is moderately hypokinetic. Atria The left atrium size is normal. The right atrium is not well-visualized. There is no Doppler evidence of interatrial shunt. Aortic Valve The aortic valve is mildly thickened. There is no aortic valvular stenosis. Trace aortic regurgitation. Mitral Valve The mitral valve leaflets are mildly thickened. No evidence of mitral valve stenosis. Trace mitral regurgitation. Tricuspid Valve The tricuspid valve leaflets are thin and pliable. Mild tricuspid regurgitation. RVSP is 50-55 mmHg. Pulmonic Valve The pulmonary valve is normal in structure. Mild pulmonic regurgitation. Great Vessels The aortic root is normal in size. The ascending aorta is not well-visualized. IVC is normal in size and collapses >50% with inspiration. Pericardium Trivial pericardial effusion. Other Information Study Quality: Technically Difficult Conclusion Technically difficult study due to poor acoustic windows. Normal LV systolic function. Severely dilated RV with moderate reduction in RV function. Mild PI Mild TR. Markedly elevated RVSP 50-55 mmHg. Electronically signed by : Brigitte Blanchard MD 01/18/2024 00:41:44
== END 2024-01-15 23:59 ==
LOC: RT 10:10
PROVIDERS: PCP Internal Medicine Adolescent Medicine; Visit Provider Nurse Practitioner Family
DX: R94.31 Abnormal electrocardiogram [ECG] [EKG] (principal); E78.5 Hyperlipidemia, unspecified; I27.20 Pulmonary hypertension, unspecified; E66.01 Morbid (severe) obesity due to excess calories; I45.10 Unspecified right bundle-branch block; N18.9 Chronic kidney disease, unspecified; E11.9 Type 2 diabetes mellitus without complications; I50.30 Unspecified diastolic (congestive) heart failure; Z68.42 Body mass index [BMI] 45.0-49.9, adult
CPT/HCPCS: 93306

== ENCOUNTER 2024-07-01 11:19 | Outpatient (CLI) | payer MEDICARE, OTHER, SELFPAY ==
[2024-07-01 11:52] LABS: Basophils % 0.4 % (0.1-2.0); Eosinophils # 0.1 K/mm3 (0.0-0.4); Eosinophils % 2.2 % (0.1-12.0); Hematocrit 40.8 % (37.0-47.0); Hemoglobin 12.5 g/dL (12.2-16.2); Lymphocytes # 1.1 K/mm3 (0.7-4.5); Lymphocytes % 17.8 % (10-50); Mean Corpuscular HGB Conc 30.7 g/dL (31.8-35.4); Mean Corpuscular Hemoglobin 29.1 pg (27.0-31.2); Mean Corpuscular Volume 94.9 fl (81-99); Mean Platelet Volume 7.6 fl (7.4-10.4); Monocytes # 0.3 K/mm3 (0.1-1.0); Monocytes % 4.6 % (1.7-9.3); Neutrophils # 4.7 K/mm3 (1.8-7.8); Neutrophils % 74.9 % (37.0-80.0); Platelet Count 215 K/mm3 (142-424); White Blood Count 6.2 K/mm3 (4.8-10.8)
[2024-07-01 13:05] LABS: Hemoglobin A1C 5.5 % (4.0-6.0)
[2024-07-01 13:19] LABS: Alanine Aminotransferase 15 U/L (12-78); Albumin/Globulin Ratio 1.1 (1.1-1.8); Alkaline Phosphatase 136 U/L (38-126); Anion Gap 12.6 mEq/L (5-15); Aspartate Amino Transferase 53 U/L (14-36); Bilirubin,Total 1.1 mg/dl (0.2-1.3); Blood Urea Nitrogen 35 mg/dl (7-17); Carbon Dioxide 23 mmol/L (22.0-30.0); Chloride 108 mmol/L (98-107); Chol/HDL Ratio 3.1 (1-3.5); Cholesterol 148 mg/dl (140-200); Estimated Glomerular Filt Rate 29 ml/min (>60); GFR (African American) 36 ML/MIN (>60); Globulin 3.5 g/dL (1.3-3.2); Glucose 81 mg/dl (74-100); HDL Cholesterol 47 mg/dl (40-60); Potassium 5.6 mmoL/L (3.5-5.1); Sodium 138 mmol/L (136-145); Total Protein,Serum 7.5 g/dl (6.3-8.2); Triglycerides 102 mg/dl (30-150); VLDL Cholesterol 20 mg/dL (0-40)
[2024-07-01 13:30] LABS: Direct LDL Cholesterol 64.39 mg/dL (100-129)
== END 2024-07-01 23:59 | disposition home or self-care (01) ==
LOC: LAB 11:21
PROVIDERS: PCP Internal Medicine Adolescent Medicine; Visit Provider Nurse Practitioner Family
DX: E78.5 Hyperlipidemia, unspecified (principal); E11.22 Type 2 diabetes mellitus with diabetic chronic kidney disease; N18.31 Chronic kidney disease, stage 3a
CPT/HCPCS: 36415; 80053; 80061; 83036; 85025

== ENCOUNTER 2024-07-23 12:01 | Outpatient (CLI) | payer MEDICARE, OTHER, SELFPAY ==
[2024-07-23 12:41] LABS: Basophils % 0.5 % (0.1-2.0); Eosinophils # 0.1 K/mm3 (0.0-0.4); Eosinophils % 1.4 % (0.1-12.0); Hematocrit 41.1 % (37.0-47.0); Lymphocytes # 1.7 K/mm3 (0.7-4.5); Lymphocytes % 22.9 % (10-50); Mean Corpuscular HGB Conc 31.6 g/dL (31.8-35.4); Mean Corpuscular Hemoglobin 29.2 pg (27.0-31.2); Mean Corpuscular Volume 92.5 fl (81-99); Mean Platelet Volume 8.6 fl (7.4-10.4); Monocytes # 0.5 K/mm3 (0.1-1.0); Monocytes % 6.5 % (1.7-9.3); Neutrophils # 5.2 K/mm3 (1.8-7.8); Neutrophils % 68.6 % (37.0-80.0); Platelet Count 253 K/mm3 (142-424); Red Blood Count 4.44 M/mm3 (4.20-5.40); Red Cell Distribution Width 14.5 % (11.5-17.5); White Blood Count 7.6 K/mm3 (4.8-10.8)
[2024-07-23 13:42] LABS: Alanine Aminotransferase 10 U/L (12-78); Albumin/Globulin Ratio 1.2 (1.1-1.8); Alkaline Phosphatase 136 U/L (38-126); Anion Gap 9.6 mEq/L (5-15); Aspartate Amino Transferase 21 U/L (14-36); Bilirubin,Total 0.7 mg/dl (0.2-1.3); Blood Urea Nitrogen 34 mg/dl (7-17); Calcium 9.3 mg/dl (8.4-10.2); Carbon Dioxide 30 mmol/L (22.0-30.0); Chloride 103 mmol/L (98-107); Chol/HDL Ratio 3.1 (1-3.5); Cholesterol 169 mg/dl (140-200); Estimated Glomerular Filt Rate 32 ml/min (>60); GFR (African American) 38 ML/MIN (>60); Globulin 3.3 g/dL (1.3-3.2); Glucose 91 mg/dl (74-100); HDL Cholesterol 55 mg/dl (40-60); Potassium 4.6 mmoL/L (3.5-5.1); Sodium 138 mmol/L (136-145); Total Protein,Serum 7.3 g/dl (6.3-8.2); Triglycerides 110 mg/dl (30-150); VLDL Cholesterol 22 mg/dL (0-40)
[2024-07-23 13:52] LABS: Direct LDL Cholesterol 86.66 mg/dL (100-129)
[2024-07-23 16:41] LABS: Hemoglobin A1C 5.5 % (4.0-6.0)
== END 2024-07-23 23:59 | disposition home or self-care (01) ==
LOC: LAB 12:05
PROVIDERS: PCP Internal Medicine Adolescent Medicine; Visit Provider Nurse Practitioner Family
DX: E78.5 Hyperlipidemia, unspecified (principal); E11.22 Type 2 diabetes mellitus with diabetic chronic kidney disease; N18.31 Chronic kidney disease, stage 3a
CPT/HCPCS: 36415; 80053; 80061; 83036; 85025

== ENCOUNTER 2024-10-03 20:08 | Emergency (ER) | payer MEDICARE, OTHER, SELFPAY ==
[2024-10-03 20:09] VITALS: BP 114/72; PULSE 64; RESP 22; TEMP 36.9; O2SAT 96; BMI 51.7
--- NOTE | 2024-10-03 20:27 | ECG_ITS ---
APPROVED REPORT Exam: Resting ECG HR:85 bpm ECG Measurements Heart Rate 85 AXES MI 204 P -8 QRSd 162 QRS 193 QT 403 T -20 QTc 446 Conclusion SINUS RHYTHM RIGHT AXIS DEVIATION [QRS AXIS > 100] RIGHT BUNDLE BRANCH BLOCK [120+ ms QRS DURATION, UPRIGHT V1, 40+ ms S IN I/aVL/V4/V5/V6] MODERATE T-WAVE ABNORMALITY, CONSIDER LATERAL ISCHEMIA [-0.1+ mV T-WAVE IN I/aVL/V5/V6] ABNORMAL ECG UNCONFIRMED REPORT Electronically signed by : LUIS WIGGINS, 10/03/2024 23:10:43
--- NOTE | 2024-10-03 20:31 | XR_ITS ---
PROCEDURE INFORMATION: Exam: XR Chest Exam date and time: 10/03/2024 8:59 PM Age: 74 years old Clinical indication: Cough and shortness of breath; Additional info: Cough, SOA TECHNIQUE: Imaging protocol: Radiologic exam of the chest. Views: 1 view. COMPARISON: CR XR CHEST PORTABLE PICC PLAC 11/27/2022 3:22 PM FINDINGS: Lungs: Mildly low lung volumes. Bilateral perihilar opacities. Pleural spaces: No large pleural effusion. No pneumothorax. Heart/Mediastinum: No cardiomegaly. Calcified atherosclerotic changes of the thoracic aorta. Bones/joints: Unremarkable. IMPRESSION: Bilateral perihilar opacities which can be seen with pulmonary edema or infection in the acute setting.
--- NOTE | 2024-10-03 20:32 | HMH.EDGENADL ---
Discharge Plan Disposition Patient Disposition: Home, Self-Care Prescriptions Prescriptions: New prednisone 20 mg tablet 40 mg PO DAILY 4 Days Qty: 8 0RF doxycycline hyclate 100 mg tablet 100 mg PO BID 7 Days Qty: 14 0RF No Action aspirin [Adult Low Dose Aspirin] 81 mg tablet,delayed release (DR/EC) 81 mg PO DAILY acetaminophen 500 mg tablet 500 mg PO Q6H PRN (Reason: .) celecoxib 100 mg capsule 100 mg PO DAILY rosuvastatin 5 mg tablet PO carvedilol 3.125 mg tablet 3.125 mg PO BID furosemide [Lasix] 40 mg tablet 40 mg PO DAILY Rx Instructions: TAKE BEFORE BED HS spironolactone [Aldactone] 50 mg tablet 50 mg PO DAILY Referrals Follow up/Referrals: Vik Lieberman MD [Primary Care Provider] - See instructions Activity Restrictions/Add. Instructions Additional Instructions/Restrictions: You were evaluated in the emergency department today. Please follow-up closely with your primary care provider. Use your inhaler at home as prescribed. Please take antibiotics and steroids as prescribed. Return to the emergency department for new or worsening .symptoms Clinical Impressions Clinical Impression: Asthma exacerbation, Pneumonia Instructions Patient Instructions: DI for Asthma -- Adult, DI for Pneumonia -- Adult, DI for Shortness of Breath Print Language Print Language: [place] Discharge ED Provider: Shannan Quiroz General Adult HPI <Shannan Quiroz DO - Last Filed: 10/03/24 23:53> General Chief complaint: Shortness of Breath/Dyspnea Stated complaint: Difficulty breathing Time Seen by Provider: 10/03/24 20:10 History of Present Illness HPI narrative: This patient is a 74-year-old female with a history of asthma, hypertension, hyperlipidemia, obesity, right bundle branch block, and CHF presenting to the emergency department for evaluation with concern for shortness of breath. Patient reports that she has been sick for about 3 weeks with upper respiratory infection. She notes the cough went away, but she has progressively been feeling more short of breath. Given the significant shortness of breath, she decided to come in today. No recent fevers, chills, chest pain, abdominal pain, nausea, vomiting, changes bowel movements, rashes, or other concerns. She does note chronic intermittent bilateral leg swelling, right greater than left, which is baseline for her. It is not worse than usual. She follows with pulmonology for asthma and follows with cardiology for heart failure with preserved ejection fraction. She had normal coronary angiogram in 2022. And noted EF is 55% on medical record review. Related Data Home Medications ?Medication ?Instructions ?Recorded ?Confirmed aspirin 81 mg tablet,delayed 81 mg PO DAILY heart 11/07/17 09/14/24 release (Adult Low Dose Aspirin) acetaminophen 500 mg tablet 500 mg PO Q6H PRN . 12/20/22 09/14/24 celecoxib 100 mg capsule 100 mg PO DAILY . 02/07/23 09/14/24 carvedilol 3.125 mg tablet 3.125 mg PO BID . 02/21/23 09/14/24 furosemide 40 mg tablet (Lasix) 40 mg PO DAILY swelling 07/30/23 09/14/24 spironolactone 50 mg tablet 50 mg PO DAILY bp 07/30/23 09/14/24 (Aldactone) rosuvastatin 5 mg tablet mg PO 01/01/24 09/14/24 Previous Rx's ?Medication ?Instructions ?Recorded doxycycline hyclate 100 mg tablet 100 mg PO BID 7 days #14 tabs 10/03/24 prednisone 20 mg tablet 40 mg (2 x 20 mg) PO DAILY 4 days 10/03/24 #8 tabs Allergies Allergy/AdvReac Type Severity Reaction Status Date / Time colesevelam (From WELCHOL) Allergy Severe I-RASH Verified 09/14/24 15:23 [facility] <Shannan Quiroz DO - Last Filed: 10/03/24 23:53> [facility] Disclaimer: The information contained in this section may have been updated after the patient was seen, as this information can be updated by other users. Medical History Daytime somnolence Snoring Disordered sleep Dyspnea on exertion Asthma (HFpEF) heart failure with preserved ejection fraction Non-STEMI (non-ST elevated myocardial infarction) Angina pectoris Abnormal cardiovascular stress test Pulmonary hypertension Acute diastolic (congestive) heart failure Morbid obesity Hypertension Diabetes mellitus, type 2 Elevated CPK CKD (chronic kidney disease) Acute respiratory failure with hypoxia Fall Right bundle branch block Urinary tract infection Non-ST elevated myocardial infarction Urolithiasis Surgical History History of bilateral ligation of fallopian tubes LAP-BAND surgery status History of right hip replacement History of left hip replacement Family History Other Family history of diabetes mellitus type I Family history of hyperlipidemia Family history of hypertension Family history of myocardial infarction Social History (Updated 10/03/24 @ 23:53 by Shannan Quiroz DO) Smoking Status: Unknown if ever smoked alcohol intake: never substance use type: denies use current occupational status: disabled Travel in the last 8 weeks: None Other Medical History Have you received the Flu Vaccine for this season: No Have you received the Pneumonia Vaccine: Yes <Shannan Quiroz DO - Last Filed: 10/03/24 23:53> ROS Obtained: Yes All systems reviewed & no additional complaints except as documented Physical Exam <Shannan Quiroz DO - Last Filed: 10/03/24 23:53> General General appearance: alert, in no apparent distress and obese Head Head exam: atraumatic and normocephalic Eye Eye exam: Present normal appearance, PERRL and EOMI ENT ENT exam: Present normal exam, normal oropharynx, mucous membranes moist and normal external ear exam Neck Neck exam: Present normal inspection, full ROM and trachea midline; Absent tenderness Chest Chest inspection: Present normal inspection and symmetric chest wall rise; Absent tenderness Respiratory Respiratory exam: Present wheezes, accessory muscle use, prolonged expiratory phase and other (Bilateral wheezes and rhonchi, especially at the lung bases); Absent respiratory distress or stridor Cardiovascular Cardiovascular exam: Present regular rate and normal rhythm Abdominal Exam Abdominal exam: Present soft; Absent distention, tenderness or guarding Extremities Exam Extremities exam: Present full ROM, normal capillary refill and edema (Right greater than left lower extremity edema); Absent tenderness Back Exam Back exam: Present normal inspection and full ROM; Absent tenderness Neurological Exam Neurological exam: Present alert, oriented X3, CN II-XII intact and normal gait; Absent motor sensory deficit Psychiatric Psychiatric exam: Present normal affect and normal mood Skin Skin exam: Present warm and dry Medical Decision Making <Shannan Quiroz DO - Last Filed: 10/03/24 23:53> Medical Records Medical records reviewed: Yes I reviewed the patient's medical records. Screening: Per USPSTF and CDC recommendations, given the prevalence of disease in our region, it is our hospital?s policy to screen for HIV and viral Hepatitis for all patients aged 18 and over and those with ongoing risk factors. Wong Inquiry Pt receiving controlled substance: No Vital Signs: 10/03/24 20:09 10/03/24 20:34 10/03/24 21:00 Temperature 98.4 F Temperature Source Oral Pulse Rate 84 82 Pulse Rate [Left] 64 Respiratory Rate 22 Blood Pressure 114/72 102/71 L Blood Pressure [Right Arm] 114/72 Blood Pressure Mean [Right Arm] 86 02 Sat by Pulse Oximetry 96 94 L 94 L Oxygen Delivery Method Nasal Cannula Oxygen Flow Rate (LPM) 2 10/03/24 21:15 10/03/24 21:33 10/03/24 21:59 Temperature Temperature Source Pulse Rate 83 82 77 Pulse Rate [Left] Respiratory Rate Blood Pressure 123/49 L Blood Pressure [Right Arm] Blood Pressure Mean [Right Arm] 02 Sat by Pulse Oximetry 97 Oxygen Delivery Method Oxygen Flow Rate (LPM) Lab Data Lab results reviewed: Yes I reviewed the patient's lab results. Lab Results 10/03/24 20:30: WBC 7.7, RBC 4.27, Hgb 12.4, Hct 38.9, MCV 91.1, MCH 29.0, MCHC 31.9, RDW 14.5, Plt Count 215, MPV 8.2, Neut % (Auto) 73.7, Lymph % (Auto) 17.1, [place] % (Auto) 6.3, Eos % (Auto) 2.3, Baso % (Auto) 0.6, Neut # (Auto) 5.6, Lymph # (Auto) 1.3, [place] # (Auto) 0.5, Eos # (Auto) 0.2, Baso # (Auto) 0.1, D-Dimer 1.05 H, Sodium 138, Potassium 4.9, Chloride 102, Carbon Dioxide 29, Anion Gap 11.9, BUN 40 H, Creatinine 1.90 H, Estimated Creat Clear 26, Estimated GFR 26 L, Est GFR ( Amer) 31 L, Glucose 96, Calcium 9.1, Total Bilirubin 0.6, AST 21, ALT 10 L, Alkaline Phosphatase 122, Troponin I < 0.01, C-Reactive Protein 14.7 H, NT-Pro-B Natriuret Pep 1550 H, Total Protein 7.7, Albumin 4.1, Globulin 3.6 H, Albumin/Globulin Ratio 1.1, Procalcitonin 0.120, TSH 1.84, Thyroxine (T4) 10.0, HIV 1&2 Antibody Rapid Nonreactive 10/03/24 20:31: VBG pH 7.29 L, VBG pCO2 58.2 H, VBG pO2 43.6 H, VBG HCO3 27.5, VBG Total CO2 29.3 H, VBG O2 Saturation 78.5 H, VBG Base Excess 1.0, VBG Lactic Acid 2.0 10/03/24 21:21: SARS-CoV-2 (PCR) Not detected, Influenza A Untype (PCR) Not detected, Influenza Type B (PCR) Not detected 10/03/24 20:30 10/03/24 20:30 Orders (Tests/Meds): ED MEDICATIONS Generic Name Dose Route Start Last Admin Trade Name Freq PRN Reason Stop Dose Admin Sodium Chloride 10 ml 10/03/24 21:40 10/03/24 23:04 Sodium Chloride 0.9% 10ml Syr (Rad Only) IV 11/02/24 21:39 10 ml NEEDED PRN Administration Maintain IV Site Discontinued Medications Generic Name Dose Route Start Last Admin Trade Name Freq PRN Reason Stop Dose Admin Albuterol Sulfate 2 puff 10/03/24 23:19 10/03/24 23:22 Albuterol-Hfa 90mcg/Puff Inhaler 8gm 10/03/24 23:20 2 puff ONCE ONE Administration Albuterol/Ipratropium 9 ml 10/03/24 20:31 10/03/24 21:14 Ipratropium/Albuterol 3 Ml Neb 10/03/24 20:32 9 ml ONCE ONE Administration Doxycycline Hyclate 100 mg 10/03/24 23:19 10/03/24 23:22 Doxycycline Hycl 100 Mg Tablet PO 10/03/24 23:20 100 mg ONCE ONE Administration Iopamidol 70 ml 10/03/24 21:40 10/03/24 23:04 Iopamidol-370 (76%);100ml Bottle IV 10/03/24 21:41 70 ml ONCE ONE Administration Methylprednisolone Sodium Succinate 125 mg 10/03/24 22:35 10/03/24 23:12 Methylprednisolone Sod Succ 125mg Vial IV 10/03/24 22:36 125 mg ONCE ONE Administration Miscellaneous 1 unit 10/03/24 23:19 10/03/24 23:23 Aerochamber/Optihaler MC 10/03/24 23:20 1 unit ONCE ONE Administration Sodium Chloride 500 ml 10/03/24 21:17 10/03/24 21:21 Sodium Chloride 0.9% 500ml Bag IV 10/03/24 21:18 500 ml ONCE ONE Administration Sodium Chloride 50 ml 10/03/24 21:40 10/03/24 23:04 0.9 % Sodium Chloride 50 Ml Vial IV 10/03/24 21:41 50 ml ONCE ONE Administration ORDERS Category Date Time Status CT angio chest PE protocol Stat Cat Scan 10/03/24 21:16 Completed CXR --portable [XR chest portable] Stat Exams 10/03/24 20:31 Completed BNP [NT Pro Brain Natriuretic Pep.] Stat Lab 10/03/24 20:30 Completed CRP [C-Reactive Protein] Stat Lab 10/03/24 20:30 Completed Complete Blood Count Auto Diff Stat Lab 10/03/24 20:30 Completed Comprehensive Metabolic Panel Stat Lab 10/03/24 20:30 Completed D-Dimer Stat Lab 10/03/24 20:30 Completed HIV (1&2) Antibody Rapid Stat Lab 10/03/24 20:30 Completed Hep C Ab with Reflex to RNA Stat Lab 10/03/24 20:30 Received Procalcitonin Stat Lab 10/03/24 20:30 Completed Rapid PCR Covid and Flu A/B Stat Lab 10/03/24 21:21 Completed T4 (Thyroxine) Stat Lab 10/03/24 20:30 Completed TSH [Thyroid Stimulating Hormone] Stat Lab 10/03/24 20:30 Completed Trop I [Troponin I] Stat Lab 10/03/24 20:30 Completed Troponin I Q3H Lab 10/03/24 23:45 Ordered Troponin I Q3H Lab 10/04/24 02:45 Ordered VBG [Venous Blood Gas] Stat RT 10/03/24 20:31 Completed ECG Data Tracing #1: I reviewed this ECG and interpreted as documented below: Normal sinus rhythm with a ventricular rate of 85 bpm. Right axis deviation. Right bundle branch block. Motion artifact degrades study but no acute ST changes concerning for ischemia noted. ECG initial impression date: 10/03/24 ECG initial impression time: 20:30 Medical Decision Narrative: In summary, this patient is a 74-year-old female presenting to the Emergency Department for evaluation of shortness of breath. Differential diagnoses considered include but are not limited to asthma exacerbation, CHF exacerbation, respiratory failure, pneumonia, PE. Ruling out the most morbid conditions drove assessment. It should be noted patient's history includes morbid obesity, asthma, CHF which are likely not at goal therapy. This complicates all aspects of care by increasing patient's risk for morbidity. I reviewed patient's past medical records and noted previous pulmonology evaluations for asthma as well as prior cardiology evaluation as detailed in HPI. On exam, the patient is lying in bed. She arrived hypoxic with O2 saturation in the 80s on room air, so she was placed on supplemental oxygen via nasal cannula. This did improve her oxygenation. She has accessory muscle use and prolonged expiratory phase but no severe respiratory distress. She has wheezes and rhonchi heard bilaterally. Workup included CBC, CMP, troponin, BNP, VBG, CRP, Pro-[place], viral swab, chest x-ray, EKG. EKG obtained is reassuring. Patient was given DuoNebs x 3 to assess for symptomatic improvement. I independently interpreted chest x-ray prior to the radiologist read and noted concerns for pneumonia. Please see their read for final interpretation. Labs were obtained that demonstrated reassuring CBC, mild respiratory acidosis, BNP that is much lower than prior, negative troponin. On reassessment, patient had great improvement after administration of DuoNeb's. She is able to be weaned from supplemental oxygen and has no significant increased work of breathing on reassessment. She was given IV methylprednisolone and oral doxycycline. She was also given an albuterol inhaler, as she is on a steroid inhaler at home but not albuterol. CT was ordered for elevated D-dimer and the read was pending at time of signout to oncoming provider, Dr. Larose. If the CT is negative given the patient was able to be wound to room air and has no significant increased work of breathing, I feel she is appropriate for discharge home with prescriptions for steroids and doxycycline to treat asthma exacerbation and community-acquired pneumonia.. <Neville Larose MD - Last Filed: 10/04/24 00:01> Vital Signs: 10/03/24 20:09 10/03/24 20:34 10/03/24 21:00 Temperature 98.4 F Temperature Source Oral Pulse Rate 84 82 Pulse Rate [Left] 64 Respiratory Rate 22 Blood Pressure 114/72 102/71 L Blood Pressure [Right Arm] 114/72 Blood Pressure Mean [Right Arm] 86 02 Sat by Pulse Oximetry 96 94 L 94 L Oxygen Delivery Method Nasal Cannula Oxygen Flow Rate (LPM) 2 10/03/24 21:15 10/03/24 21:33 10/03/24 21:59 Temperature Temperature Source Pulse Rate 83 82 77 Pulse Rate [Left] Respiratory Rate Blood Pressure 123/49 L Blood Pressure [Right Arm] Blood Pressure Mean [Right Arm] 02 Sat by Pulse Oximetry 97 Oxygen Delivery Method Oxygen Flow Rate (LPM) Lab Data Lab Results 10/03/24 20:30: WBC 7.7, RBC 4.27, Hgb 12.4, Hct 38.9, MCV 91.1, MCH 29.0, MCHC 31.9, RDW 14.5, Plt Count 215, MPV 8.2, Neut % (Auto) 73.7, Lymph % (Auto) 17.1, [place] % (Auto) 6.3, Eos % (Auto) 2.3, Baso % (Auto) 0.6, Neut # (Auto) 5.6, Lymph # (Auto) 1.3, [place] # (Auto) 0.5, Eos # (Auto) 0.2, Baso # (Auto) 0.1, D-Dimer 1.05 H, Sodium 138, Potassium 4.9, Chloride 102, Carbon Dioxide 29, Anion Gap 11.9, BUN 40 H, Creatinine 1.90 H, Estimated Creat Clear 26, Estimated GFR 26 L, Est GFR ( Amer) 31 L, Glucose 96, Calcium 9.1, Total Bilirubin 0.6, AST 21, ALT 10 L, Alkaline Phosphatase 122, Troponin I < 0.01, C-Reactive Protein 14.7 H, NT-Pro-B Natriuret Pep 1550 H, Total Protein 7.7, Albumin 4.1, Globulin 3.6 H, Albumin/Globulin Ratio 1.1, Procalcitonin 0.120, TSH 1.84, Thyroxine (T4) 10.0, HIV 1&2 Antibody Rapid Nonreactive 10/03/24 20:31: VBG pH 7.29 L, VBG pCO2 58.2 H, VBG pO2 43.6 H, VBG HCO3 27.5, VBG Total CO2 29.3 H, VBG O2 Saturation 78.5 H, VBG Base Excess 1.0, VBG Lactic Acid 2.0 10/03/24 21:21: SARS-CoV-2 (PCR) Not detected, Influenza A Untype (PCR) Not detected, Influenza Type B (PCR) Not detected Orders (Tests/Meds): ED MEDICATIONS Generic Name Dose Route Start Last Admin Trade Name Freq PRN Reason Stop Dose Admin Sodium Chloride 10 ml 10/03/24 21:40 10/03/24 23:04 Sodium Chloride 0.9% 10ml Syr (Rad Only) IV 11/02/24 21:39 10 ml NEEDED PRN Administration Maintain IV Site Discontinued Medications Generic Name Dose Route Start Last Admin Trade Name Freq PRN Reason Stop Dose Admin Albuterol Sulfate 2 puff 10/03/24 23:19 10/03/24 23:22 Albuterol-Hfa 90mcg/Puff Inhaler 8gm IH 10/03/24 23:20 2 puff ONCE ONE Administration Albuterol/Ipratropium 9 ml 10/03/24 20:31 10/03/24 21:14 Ipratropium/Albuterol 3 Ml Neb IH 10/03/24 20:32 9 ml ONCE ONE Administration Doxycycline Hyclate 100 mg 10/03/24 23:19 10/03/24 23:22 Doxycycline Hycl 100 Mg Tablet PO 10/03/24 23:20 100 mg ONCE ONE Administration Iopamidol 70 ml 10/03/24 21:40 10/03/24 23:04 Iopamidol-370 (76%);100ml Bottle IV 10/03/24 21:41 70 ml ONCE ONE Administration Methylprednisolone Sodium Succinate 125 mg 10/03/24 22:35 10/03/24 23:12 Methylprednisolone Sod Succ 125mg Vial IV 10/03/24 22:36 125 mg ONCE ONE Administration Miscellaneous 1 unit 10/03/24 23:19 10/03/24 23:23 Aerochamber/Optihaler MC 10/03/24 23:20 1 unit ONCE ONE Administration Sodium Chloride 500 ml 10/03/24 21:17 10/03/24 21:21 Sodium Chloride 0.9% 500ml Bag IV 10/03/24 21:18 500 ml ONCE ONE Administration Sodium Chloride 50 ml 10/03/24 21:40 10/03/24 23:04 0.9 % Sodium Chloride 50 Ml Vial IV 10/03/24 21:41 50 ml ONCE ONE Administration ORDERS Category Date Time Status CT angio chest PE protocol Stat Cat Scan 10/03/24 21:16 Completed CXR --portable [XR chest portable] Stat Exams 10/03/24 20:31 Completed BNP [NT Pro Brain Natriuretic Pep.] Stat Lab 10/03/24 20:30 Completed CRP [C-Reactive Protein] Stat Lab 10/03/24 20:30 Completed Complete Blood Count Auto Diff Stat Lab 10/03/24 20:30 Completed Comprehensive Metabolic Panel Stat Lab 10/03/24 20:30 Completed D-Dimer Stat Lab 10/03/24 20:30 Completed HIV (1&2) Antibody Rapid Stat Lab 10/03/24 20:30 Completed Hep C Ab with Reflex to RNA Stat Lab 10/03/24 20:30 Received Procalcitonin Stat Lab 10/03/24 20:30 Completed Rapid PCR Covid and Flu A/B Stat Lab 10/03/24 21:21 Completed T4 (Thyroxine) Stat Lab 10/03/24 20:30 Completed TSH [Thyroid Stimulating Hormone] Stat Lab 10/03/24 20:30 Completed Trop I [Troponin I] Stat Lab 10/03/24 20:30 Completed Troponin I Q3H Lab 10/03/24 23:45 Ordered Troponin I Q3H Lab 10/04/24 02:45 Ordered VBG [Venous Blood Gas] Stat RT 10/03/24 20:31 Completed Medical Decision Narrative: In summary, this patient is a 74-year-old female presenting to the Emergency Department for evaluation of shortness of breath. Differential diagnoses considered include but are not limited to asthma exacerbation, CHF exacerbation, respiratory failure, pneumonia, PE. Ruling out the most morbid conditions drove assessment. It should be noted patient's history includes morbid obesity, asthma, CHF which are likely not at goal therapy. This complicates all aspects of care by increasing patient's risk for morbidity. I reviewed patient's past medical records and noted previous pulmonology evaluations for asthma as well as prior cardiology evaluation as detailed in HPI. On exam, the patient is lying in bed. She arrived hypoxic with O2 saturation in the 80s on room air, so she was placed on supplemental oxygen via nasal cannula. This did improve her oxygenation. She has accessory muscle use and prolonged expiratory phase but no severe respiratory distress. She has wheezes and rhonchi heard bilaterally. Workup included CBC, CMP, troponin, BNP, VBG, CRP, Pro-[place], viral swab, chest x-ray, EKG. EKG obtained is reassuring. Patient was given DuoNebs x 3 to assess for symptomatic improvement. I independently interpreted chest x-ray prior to the radiologist read and noted concerns for pneumonia. Please see their read for final interpretation. Labs were obtained that demonstrated reassuring CBC, mild respiratory acidosis, BNP that is much lower than prior, negative troponin. On reassessment, patient had great improvement after administration of DuoNeb's. She is able to be weaned from supplemental oxygen and has no significant increased work of breathing on reassessment. She was given IV methylprednisolone and oral doxycycline. She was also given an albuterol inhaler, as she is on a steroid inhaler at home but not albuterol. CT was ordered for elevated D-dimer and the read was pending at time of signout to oncoming provider, Dr. Larose. If the CT is negative given the patient was able to be wound to room air and has no significant increased work of breathing, I feel she is appropriate for discharge home with prescriptions for steroids and doxycycline to treat asthma exacerbation and community-acquired pneumonia.. Lachelle TODD: I assumed care of the patient at the time of handoff from the prior provider. On reassessment patient reports symptomatic improvement. She continues to sat appropriately on room air. CT imaging was interpreted by me and interpreted by radiology, no evidence of PE, does show mosaic attenuation of the lungs which is consistent with infection. These findings were communicated with patient. She is discharged in stable condition with prescription for antibiotics, steroids and albuterol inhaler. Strict return precautions were given. Critical Care <Shannan Quiroz, - Last Filed: 10/03/24 23:53> Critical Care Time Critical Care Time: No
[2024-10-03 20:34] VITALS: BP 114/72; PULSE 84; O2SAT 94
[2024-10-03 20:55] LABS: Basophils # 0.1 K/mm3 (0-0.2); Basophils % 0.6 % (0.1-2.0); Eosinophils # 0.2 K/mm3 (0.0-0.4); Eosinophils % 2.3 % (0.1-12.0); Hematocrit 38.9 % (37.0-47.0); Hemoglobin 12.4 g/dL (12.2-16.2); Lymphocytes # 1.3 K/mm3 (0.7-4.5); Lymphocytes % 17.1 % (10-50); Mean Corpuscular HGB Conc 31.9 g/dL (31.8-35.4); Mean Corpuscular Volume 91.1 fl (81-99); Mean Platelet Volume 8.2 fl (7.4-10.4); Monocytes # 0.5 K/mm3 (0.1-1.0); Monocytes % 6.3 % (1.7-9.3); Neutrophils # 5.6 K/mm3 (1.8-7.8); Neutrophils % 73.7 % (37.0-80.0); Platelet Count 215 K/mm3 (142-424); Red Blood Count 4.27 M/mm3 (4.20-5.40); Red Cell Distribution Width 14.5 % (11.5-17.5); White Blood Count 7.7 K/mm3 (4.8-10.8)
[2024-10-03 20:57] LABS: Chloride 102 mmol/L (98-107)
[2024-10-03 20:57] LABS: VBG HCO3 27.5 mmol/L (23-30); VBG Oxygen Saturation 78.5 % (50-70); VBG PH 7.29 mmol/L (7.31-7.41); VBG PO2 43.6 mmol/L (28-40); VBG Total CO2 29.3 mmol/L (23-27)
[2024-10-03 20:58] LABS: Albumin Level 4.1 g/dl (3.5-5.0); Potassium 4.9 mmoL/L (3.5-5.1); Sodium 138 mmol/L (136-145)
[2024-10-03 20:59] LABS: VBG PCO2 58.2 mmol/L (35-51)
[2024-10-03 21:00] VITALS: BP 102/71; PULSE 82; O2SAT 94
[2024-10-03 21:00] LABS: Blood Urea Nitrogen 40 mg/dl (7-17); Creatinine Clearance Estimated 26 mL/min (50-200); Estimated Glomerular Filt Rate 26 ml/min (>60); GFR (African American) 31 ML/MIN (>60)
[2024-10-03 21:01] LABS: Alanine Aminotransferase 10 U/L (12-78); Albumin/Globulin Ratio 1.1 (1.1-1.8); Alkaline Phosphatase 122 U/L (38-126); Anion Gap 11.9 mEq/L (5-15); Aspartate Amino Transferase 21 U/L (14-36); Bilirubin,Total 0.6 mg/dl (0.2-1.3); Calcium 9.1 mg/dl (8.4-10.2); Carbon Dioxide 29 mmol/L (22.0-30.0); Globulin 3.6 g/dL (1.3-3.2); Glucose 96 mg/dl (74-100); Total Protein,Serum 7.7 g/dl (6.3-8.2)
[2024-10-03 21:06] LABS: C-Reactive Protein 14.7 mg/L (0-4)
[2024-10-03 21:11] LABS: D-Dimer 1.05 ug/mL (0.0-0.5)
[2024-10-03] MEDS: IPRATROPIUM/ALBUTEROL 3 ML NEB 9 ML IH (21:14)
[2024-10-03 21:15] VITALS: PULSE 83
--- NOTE | 2024-10-03 21:16 | CT_ITS ---
PROCEDURE INFORMATION: Exam: CTA Chest With Contrast Exam date and time: 10/03/2024 9:32 PM Age: 74 years old Clinical indication: Abnormal findings; Abnormal diagnostic tests; Elevated d-dimer; Shortness of breath; Additional info: SOA, elevated dimer TECHNIQUE: Imaging protocol: Computed tomographic angiography of the chest with contrast. Exam focused on the arteries. 3D rendering (Not supervised by radiologist): MIP and/or 3D reconstructed images were created by the technologist. Radiation optimization: All CT scans at this facility use at least one of these dose optimization techniques: automated exposure control; mA and/or kV adjustment per patient size (includes targeted exams where dose is matched to clinical indication); or iterative reconstruction. Contrast material: ISOUVE 370; Contrast volume: 70 ml; Contrast route: INTRAVENOUS (IV); COMPARISON: CT ANGIO CHEST PE PROTOCOL 11/26/2022 2:41 PM FINDINGS: Pulmonary arteries: Stable dilated pulmonary trunk measuring 3.3 cm in caliber. Suboptimal contrast opacification and artifact limiting evaluation of the pulmonary arteries, particularly of the subsegmental branches. Within the limits of the exam, no identifiable pulmonary artery embolism. Aorta: Atherosclerosis. No aortic aneurysm. No aortic dissection. Lungs: Mosaic attenuation of the lungs. No consolidation. No masses. Stable 1 cm left upper lobe pulmonary nodule. Few small scattered calcified granulomas Pleural spaces: Unremarkable. No pneumothorax. No pleural effusion. Heart: Unremarkable. No cardiomegaly. No pericardial effusion. Coronary arteries: Coronary artery calcifications. Lymph nodes: Redemonstrated calcified mediastinal and hilar lymph nodes. Liver: Cirrhotic morphology of the liver. Gallbladder and biliary ducts: Cholelithiasis. Kidneys: Bilateral nonobstructing nephroliths measuring up to 8 mm. Mild bilateral pelviectasis. Stomach: Laparoscopic banding. Bones/joints: Degenerative changes. No acute fracture. Soft tissues: Unremarkable. IMPRESSION: 1. Suboptimal contrast opacification and artifact limiting evaluation of the pulmonary arteries, particularly of the subsegmental branches. Within the limits of the exam, no identifiable pulmonary artery embolism. 2. Mosaic attenuation pattern of the lungs which may be seen with pulmonary edema, infection, or other small airways process. 3. Bilateral nonobstructing nephrolithiasis. Mild bilateral pelviectasis.
[2024-10-03 21:21] LABS: NT Pro Brain Natriuretic Pep. 1550 pg/mL (0-125); Troponin I < 0.01 ng/ml (0.00-0.034)
[2024-10-03] MEDS: SODIUM CHLORIDE 0.9% 500ML BAG 500 ML IV (21:21)
--- NOTE | 2024-10-03 21:32 | PC.NURSE ---
patient to CT
[2024-10-03 21:33] VITALS: PULSE 82
[2024-10-03 21:39] LABS: Thyroid Stimulating Hormone 1.84 uIU/mL (0.465-4.68)
[2024-10-03 21:55] LABS: HIV (1&2) Antibody Rapid NONREACTIVE (NONREACTIVE)
[2024-10-03 21:59] VITALS: BP 123/49; PULSE 77; O2SAT 97
[2024-10-03 22:04] LABS: Coronavirus 19, PCR Not Detected (NotDetected); Influenza A, PCR Not Detected (NotDetected); Influenza B, PCR Not Detected (NotDetected)
[2024-10-03] MEDS: 0.9 % SODIUM CHLORIDE 50 ML VIAL IV (23:04)
[2024-10-03] MEDS: SODIUM CHLORIDE 0.9% 10ML SYR (RAD ONLY) 10 ML IV (23:04)
[2024-10-03] MEDS: IOPAMIDOL-370 (76%);100ML BOTTLE 70 ML IV (23:04)
[2024-10-03] MEDS: METHYLPREDNISOLONE SOD SUCC 125MG VIAL 125 MG IV (23:12)
[2024-10-03] MEDS: DOXYCYCLINE HYCL 100 MG TABLET PO (23:22)
[2024-10-03] MEDS: ALBUTEROL-HFA 90MCG/PUFF INHALER 8GM 2 PUFF IH (23:22)
[2024-10-03] MEDS: AEROCHAMBER/OPTIHALER 1 UNIT MC (23:23)
[2024-10-04 00:15] VITALS: BP 118/67; PULSE 79; RESP 18; TEMP 36.9; O2SAT 92
== END 2024-10-04 00:23 | disposition home or self-care (01) ==
PROVIDERS: Emergency Provider Emergency Medicine; PCP Internal Medicine Adolescent Medicine
DX: J18.9 Pneumonia, unspecified organism (principal); J45.901 Unspecified asthma with (acute) exacerbation; R06.02 Shortness of breath; R06.00 Dyspnea, unspecified
CPT/HCPCS: 71045; 71275; 80053; 82803; 83880; 84145; 84436; 84443; 84484; 85025; 85378; 86140; 87389; 87636; 93005; 96374; 99285; J2919; J7620; Q9967

== ENCOUNTER 2024-11-27 09:45 | Outpatient (CLI) | payer MEDICARE, OTHER, SELFPAY ==
[2024-11-27 10:35] VITALS: PULSE 76; PULSE 80
[2024-11-27] MEDS: ALBUTEROL 0.083% 2.5 MG/3 ML NEB IH (10:35)
== END 2024-11-27 23:59 | disposition home or self-care (01) ==
PROVIDERS: PCP Internal Medicine Adolescent Medicine; Visit Provider Internal Medicine Pulmonary Disease
DX: R06.09 Other forms of dyspnea (principal); J44.9 Chronic obstructive pulmonary disease, unspecified
CPT/HCPCS: 94060; 94640; 94727; 94729; J7613

== ENCOUNTER 2025-01-27 12:25 | Outpatient (CLI) | payer MEDICARE, OTHER, SELFPAY ==
[2025-01-27 13:39] LABS: Anion Gap 13.9 mEq/L (5-15); Blood Urea Nitrogen 28 mg/dl (7-17); Calcium 10.5 mg/dl (8.4-10.2); Carbon Dioxide 25 mmol/L (22.0-30.0); Chloride 105 mmol/L (98-107); Estimated Glomerular Filt Rate 29 ml/min (>60); GFR (African American) 36 ML/MIN (>60); Glucose 104 mg/dl (74-100); Potassium 4.9 mmoL/L (3.5-5.1); Sodium 139 mmol/L (136-145)
== END 2025-01-27 23:59 | disposition home or self-care (01) ==
LOC: LAB 12:27
PROVIDERS: PCP Internal Medicine Adolescent Medicine; Visit Provider Physician Assistant
DX: R40.0 Somnolence (principal); R06.83 Snoring; E78.5 Hyperlipidemia, unspecified; R06.00 Dyspnea, unspecified
CPT/HCPCS: 36415; 80048

== ENCOUNTER → 2025-02-23 12:07 | Outpatient (CLI) | payer MEDICARE, OTHER, SELFPAY | LOC: SL 03-02 12:11 | PROVIDERS: PCP Internal Medicine Adolescent Medicine; Visit Provider Physician Assistant | DX: G47.33 Obstructive sleep apnea (adult) (pediatric) (principal); R40.0 Somnolence; R06.83 Snoring | CPT/HCPCS: G0399 ==

== ENCOUNTER 2025-04-27 10:06 | Outpatient (CLI) | payer MEDICARE, OTHER, SELFPAY ==
--- OUTSIDE RECORDS SUMMARY | 2025-04-27 10:09 | XMS_ITS | Clinical Summary ---
Author Organization Healthcare Address [address] [place] [address] Care Team Providers Care Science Consultant Name Role Phone Pcp, No Primary Care Provider Unavailabl e Social History Tobacco Use Types Packs/Day Years Used Date Smoking Tobacco: Never Assessed Comments Unknown Sex and Gender Information Value Date Recorded Sex Assigned at Not on file Legal Sex Female 7:37 PM EDT Gender Identity Not on file Sexual Orientation Not on file Plan of Treatment Health Maintenance Due Date Last Done Comments [facility]-Bone Density Scan 1951 [facility]-Depression Screening 1950 [facility]-Infant/Child/Adol SDOH Screenings 1950 [facility]- SDOH Screenings 1969 [facility]-Adult SDOH Screenings 1969 [facility]-DTaP,Tdap,and Td Vaccine s (1 - Tdap) 1970 CT Colonography 02/21/1996 Colonoscopy 02/21/1996 FIT-DNA 02/21/1996 FIT 02/21/1996 FOBT 02/21/1996 Sigmoidoscopy 02/21/1996 [facility]-Colorectal Cancer Screening 02/21/1996 [facility]-Zoster Vaccines (1 of 2) 2001 [facility]-Pneumococcal Vaccine: 50 + Years (2 of 2 - PPSV23) 08/13/2018 08/13/2017 [id number] Vaccine ( season) 2024 11/21/2021, 05/04/2021, 04/13/2021 [facility]-Influenza Vaccine (Seaso n Ended) 2025 08/13/2017 [facility]-RSV Vaccine: 60+ Years o r (1 - 1-dose 75+ series) 2026 HPV Vaccines Aged Out No longer eligi ble based on patient's age to complete this topic [facility]-HIB Vaccines Aged Out No longer e ligible based on patient's age to complete this topic [facility]-Hepatitis A Vaccines Aged Out No longer eligible based on patient's age to complete this topic [facility]-IPV Vaccines Aged Out No longer e ligible based on patient's age to complete this topic [facility]-Rotavirus Vaccines Aged Out No lo nger eligible based on patient's age to complete this topic Insurance MEDICARE [facility] [id number] Care Teams Science Consultant Relationship Specialty Start Date End Date Victoria Yanes [address] [place] [address] PCP - General Family Medicine 11/11/22
--- NOTE | 2025-04-27 10:11 | CT_ITS ---
FINAL REPORT TECHNIQUE: Axial images were obtained through the chest without contrast. Supine inspiratory and expiratory views were obtained. Sagittal and coronal multiplanar reconstructions were performed. This study was performed with techniques to keep radiation doses as low as reasonably achievable (ALARA). Individualized dose reduction techniques using automated exposure control or adjustment of mA and/or kV according to the patient's size were employed. CLINICAL HISTORY: .[facility] COMPARISON: 09/23/2024 FINDINGS: The lungs are clear. The heart size is normal. Dense calcifications are present in the aortic arch, and there are small scattered coronary artery calcifications as well. There is no pericardial or pleural effusion. Limited images of the upper abdomen demonstrate a lap band in the upper abdomen. There is a nodule in the posterior left upper lobe measuring 7 mm in size, best seen on image #27 of series 2, stable since the prior CT of 10/03/2024. In the spine expiratory images, there is geographic air-trapping in both the upper and lower lobes bilaterally, probably secondary to underlying bronchiolitis. No evidence of bronchiectasis is seen. Minimal changes of centrilobular emphysema are noted. No prone images were obtained on this examination. IMPRESSION: Nodule in the left upper lobe measuring 7 mm in size, stable since the prior CT of 10/03/2024. Continued follow-up is suggested. Prone views were not performed secondary to patient preference. There is geographic air-trapping in the upper and lower lobes bilaterally, likely secondary to underlying bronchiolitis. No evidence of bronchiectasis is noted. Reviewed, Interpreted and Dictated by Murphy Díaz MD Transcribed by Anaya Nam Authenticated and . [facility]
[2025-04-27 11:44] LABS: Anti-Centromere B Antibodies ND; Anti-DNA (DS) Ab Qn ND; Anti-Jo-1 ND; Antichromatin Antibodies ND; Antiscleroderma-70 Antibodies ND; RNP Antibodies ND; Sjogren's Anti-SS-A ND; Sjogren's Anti-SS-B ND
[2025-04-27 13:04] LABS: C-Reactive Protein 7.1 mg/L (0-4)
[2025-04-28 14:28] LABS: Antinuclear Antibodies (ANA) Negative (Negative)
[2025-05-03 14:10] LABS: Rheumatoid Factor IGM < 7 U (<7)
[2025-05-05 02:21] LABS: Anti-CCP Abs,IgG and IgA (RDL) < 20 Units (<20)
== END 2025-04-27 23:59 | disposition home or self-care (01) ==
PROVIDERS: PCP Internal Medicine Adolescent Medicine; Visit Provider Internal Medicine Pulmonary Disease
DX: J21.9 Acute bronchiolitis, unspecified (principal); R91.1 Solitary pulmonary nodule; J84.9 Interstitial pulmonary disease, unspecified
CPT/HCPCS: 36415; 71250; 86038; 86140; 86200; 86431